=== PATIENT | female | born 1975 ===

== ENCOUNTER 2017-01-21 23:23 | Inpatient (IN) | payer OTHER ==
[2017-01-21] MEDS ORDERED: LIDOCAINE 2% INJ 20 MG/ML (20 ML MDV) ONE (23:48)
[2017-01-22] MEDS ORDERED: IV FLUID CONTINUATION 400 ML IV ONE (00:10)
[2017-01-22] MEDS ORDERED: MIDAZOLAM 2 MG/2 ML VIAL ONE (00:20)
[2017-01-22] MEDS ORDERED: MIDAZOLAM 2 MG/2 ML VIAL IVP ONE (00:23)
[2017-01-22] MEDS ORDERED: LIDOCAINE 2% INJ 20 MG/ML SQ ONE (00:24)
[2017-01-22] MEDS ORDERED: FLUMAZENIL 0.1 MG/ML 5 ML VIAL IVP ONE (00:31)
[2017-01-22] MEDS: FLUMAZENIL 0.1 MG/ML 5 ML VIAL IVP ONE ×2 (00:33→00:36)
[2017-01-22] MEDS ORDERED: FUROSEMIDE 10 MG/ML 4 ML VIAL ONE (00:39)
[2017-01-22] MEDS ORDERED: FUROSEMIDE 10 MG/ML 4 ML VIAL IVP ONE (00:39)
[2017-01-22] MEDS ORDERED: IOHEXOL 350 MG/ML 125ML BOTTLE INJ ONE (00:47)
[2017-01-22] MEDS ORDERED: RX INFO: IV CONTRAST WAS GIVEN 1 EACH MISC MISCELLANE PRN ×2 (00:54→09:56)
--- NOTE | 2017-01-22 01:04 | P.CRDCN ---
History of Present Illness Consult date: 01/22/17 History of present illness: This is a pleasant 41-year-old female patient who was brought by her to the emergency room at [facility] after he found her on the floor at home unresponsive. The patient took her friend's oral morphine and then she became unresponsive. On arrival to the emergency room she was obtunded then she started gaining her consciousness. She was admitted to the intensive care unit. At the intensive care unit, the patient was experiencing chest discomfort as tightness across the chest was some radiation to the left arm. The EKG showed sinus rhythm with nonspecific changes in the anteroseptal leads. She underwent a 3 sets of cardiac enzymes came in to be abnormal and consistent with acute myocardial infarction. In view of the ongoing chest discomfort the patient was transferred emergently to [facility] and she underwent a heart catheterization which showed the occlusion of the very distal LAD where it became small caliber vessel. I decided to pursue a medical treatment only in view of the small nature of the LAD at [facility]. She did not have any other residual disease involving the left circumflex or the right coronary artery. The patient will be started on dual antiplatelet therapy with aspirin and Plavix. Also I would start her on metoprolol. She cannot receive any statin in view of the elevated CPK Medications and Allergies Allergies Allergy/AdvReac Type Severity Reaction Status Date / Time No Known Allergies Allergy Verified 01/22/17 00:41 Physical Exam Vitals: Intake and Output 01/21/17 01/21/17 01/22/17 14:59 22:59 06:59 Intake Total 250 Balance 250 Intake: IV 250 - Constitutional General appearance: no acute distress - Respiratory Respiratory: bilateral: rales - Cardiovascular Rhythm: regular Heart sounds: normal: S1, S2 Results Current Medications Generic Name Dose Route Start Last Admin Trade Name Freq PRN Reason Stop Dose Admin Sodium Chloride 1,000 mls @ 75 mls/hr 01/22/17 01:00 Saline 0.9% IV 01/22/17 06:01 .[id number] OTILIO Miscellaneous Information 1 each 01/22/17 00:54 Rx Info: Iv Contrast Was Given MISCELLANE 01/24/17 00:54 DAILY PRN Per Protocol Intake and Output 01/21/17 01/21/17 01/22/17 14:59 22:59 06:59 Intake Total 250 Balance 250 Intake: IV 250 Assessment and Plan Plan: Assessment Acute coronary syndrome Occluded very distal LAD Plan Dual antiplatelet therapy An echocardiogram was Doppler Anti-ischemic medication Follow-up with the patient
[2017-01-22 01:12] LABS: Glucose,Whole Blood 121 mg/dL (75-99)
[2017-01-22 01:43] VITALS: BMI 31.1
[2017-01-22 05:09] LABS: Basophils % (A) 0 %; CH 33.7; CHCM 31.2; Eosinophils # (A) 0.1 k/uL (0-0.7); Eosinophils % (A) 1 %; HCT 37.4 % (34.0-46.0); HDW 2.52; HGB 11.6 gm/dL (11.4-16.0); Luc # (Auto) 0.38; Luc % (Auto) 4; Lymphocytes # (A) 2.5 k/uL (1.0-4.8); Lymphocytes % (A) 25 %; MCH 33.8 pg (25.0-35.0); MCHC 31.1 g/dL (31.0-37.0); MCV 108.7 fL (80.0-100.0); Macrocytosis Moderate; Mean Platelet Volume 9.3; Monocytes # (A) 0.8 k/uL (0-1.0); Monocytes % (A) 8 %; Neutrophils # (A) 6.2 k/uL (1.3-7.7); Neutrophils % (A) 62 %; RBC 3.44 m/uL (3.80-5.40); RDW 13.2 % (11.5-15.5); WBC 9.9 k/uL (3.8-10.6); WBC (Perox) 10.42
[2017-01-22 05:29] LABS: Anion Gap 9 mmol/L; Blood Urea Nitrogen 10 mg/dL (7-17); Calcium 8.5 mg/dL (8.4-10.2); Carbon Dioxide 23 mmol/L (22-30); Chloride 108 mmol/L (98-107); Glucose 136 mg/dL (74-99); Non-African American GFR(MDRD) >60 (>60 ml/min/1.73 sqM); Potassium 3.6 mmol/L (3.5-5.1); Sodium 140 mmol/L (137-145)
[2017-01-22] MEDS ORDERED: Potassium Replacement Protocol 1 EACH MISC MISCELLANE PRN (06:29)
[2017-01-22] MEDS ORDERED: SODIUM CHLORIDE 0.9% 200 ML IV ONE (06:43)
[2017-01-22] MEDS: SODIUM CHLORIDE 0.9% 1,000 ML IV SCH ×2 (06:55→08:23)
[2017-01-22] MEDS ORDERED: POTASSIUM CHLORIDE ER 20 MEQ TAB.ER PO SCH (07:00)
[2017-01-22 07:49] LABS: INR 1.2 (<1.1)
[2017-01-22 08:00] LABS: ALT 78 U/L (9-52); AST 101 U/L (14-36); Alkaline Phosphatase 220 U/L (38-126); Anion Gap 6 mmol/L; Blood Urea Nitrogen 12 mg/dL (7-17); Calcium 8.5 mg/dL (8.4-10.2); Carbon Dioxide 25 mmol/L (22-30); Chloride 111 mmol/L (98-107); Glucose 84 mg/dL (74-99); Non-African American GFR(MDRD) >60 (>60 ml/min/1.73 sqM); Potassium 3.7 mmol/L (3.5-5.1); Sodium 142 mmol/L (137-145); Total Bilirubin 1.8 mg/dL (0.2-1.3); Total Protein 5.9 g/dL (6.3-8.2)
--- NOTE | 2017-01-22 08:06 | XR ---
EXAMINATION TYPE: XR chest 1V portable DATE OF EXAM: 01/22/2017 6:49 AM COMPARISON: NONE HISTORY: Shortness of breath and cough TECHNIQUE: Single frontal view of the chest is obtained. FINDINGS: There is enlargement of the aorticopulmonary window region. No pneumothorax or pleural eff usion. There are overlying cardiac leads. Question some increase in the interstitium. The heart is en larged. Central vascularity is prominent. IMPRESSION: Possible mediastinal mass, cardiomegaly. Consider chest CT. Correlate to exclude pulmona ry venous hypertension and early interstitial edema.
--- NOTE | 2017-01-22 08:07 | CC ---
DATE OF SERVICE: 01/22/2017 PERFORMING PHYSICIAN: Donovan Antunez MD, ironer sock. PROCEDURE PERFORMED: 1. Selective right and left coronary angiogram. 2. Left heart catheterization. 3. Left ventriculography. INDICATION: This is a pleasant 41-year-old female patient who was admitted to [facility] with chest discomfort and was ruled in for acute coronary event. She was having ongoing chest discomfort and the EKG showed some changes in the anteroseptal leads consistent with ischemia. The cardiac enzymes were checked and came in to be also abnormal. In view of the that, the patient was brought to [facility] for emergent heart catheterization. APPROACH: Right common femoral artery. COMPLICATIONS: None. LEVEL OF SEDATION: Moderate with a sedation length of about a half hour. PROCEDURE DESCRIPTION: After obtaining an informed consent, the patient was brought to the cardiac mechanical laboratory technician. The right common femoral artery was cannulated using micropuncture technique. Micropuncture wire passed easily. Then I placed 6 Tanz[place] sheath in the right common femoral artery. After that, I did selective right and left coronary angiogram using JR4 and JL4 catheters. Left heart catheterization and subsequently LV gram was performed using 6 Tanzanian pigtail catheter. The procedure was completed without any complication. SELECTIVE CORONARY ANGIOGRAM: 1. The right coronary artery is a large-caliber vessel and it is a dominant vessel. It is angiographically normal. It bifurcates into PDA and PLV branches; both are angiographically normal. 2. The left main is angiographically normal. It bifurcates into the left circumflex and left anterior descending artery. 3. The left circumflex is a large-caliber vessel and it is a nondominant vessel. The proximal circumflex is angiographically normal and gives rise into the first obtuse marginal branch, which is a large-caliber vessel, seems to be angiographically normal. The mid circumflex is normal and gives rise into second OM branch, which bifurcates into 2 separate branches and the second OM, seems to be angiographically normal. The left circumflex continues after that as a medium caliber vessel in the AV groove. 4. Left Anterior Descending Artery: The proximal LAD appeared to be angiographically normal. The mid LAD is angiographically normal as well. The LAD here gives rise into a large diagonal branch, which seems like almost dual LAD system. The diagonal branch appeared to have mild disease only. The LAD in the distal portion becomes occluded. The LAD at that territory becomes a small caliber vessel. HEMODYNAMICS: The left ventricular end-diastolic pressure was 16 mmHg and no gradient was identified across the aortic valve. Left ventriculography was performed in the COTO projection and using a power injection. The left ventricular systolic function overall is normal with an ejection fraction of 50% with mid anterior wall hypokinesia which seems to be mild. CONCLUSION: 1. 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 2. Normal left circumflex coronary artery. 3. Normal right coronary artery. 4. Overall normal left ventricular function with mild mid anterior wall hypokinesia. POSTPROCEDURE MANAGEMENT: 1. Dual antiplatelet therapy. 2. Anti-ischemic medications. 3. Hold on statin in view of the elevated CK. 4. Follow up with the patient. 5. Echocardiogram with Doppler.
[2017-01-22] MEDS: FAMOTIDINE 20 MG TAB PO SCH (08:23)
[2017-01-22] MEDS: LACTULOSE 20 GM/30 ML CUP PO SCH (08:25)
[2017-01-22] MEDS: CLOPIDOGREL 75 MG TAB PO SCH (08:27)
[2017-01-22] MEDS: METOPROLOL TARTRATE 12.5 MG TAB PO SCH (08:27)
[2017-01-22] MEDS: ASPIRIN 325 MG TAB PO SCH (08:27)
[2017-01-22 08:29] LABS: Creatine Kinase MB 6.6 ng/mL (0.0-2.4); Troponin I 0.265 ng/mL (0.000-0.034)
[2017-01-22] MEDS ORDERED: FUROSEMIDE 10 MG/ML 4 ML VIAL IV SCH (09:00)
[2017-01-22] MEDS ORDERED: HEPARIN SODIUM,PORCINE 10,000 UNIT/ML 1 ML VIAL IV ONE (09:57)
[2017-01-22] MEDS ORDERED: HEPARIN SODIUM,PORCINE 5,000 UNIT/ML 1 ML VIAL IV PRN (09:57)
[2017-01-22] MEDS ORDERED: HEPARIN SODIUM,PORCINE/D5W PMX 25,000 UNIT in DEXTROSE/WATER 1 500ML.BAG IV SCH (10:00)
--- NOTE | 2017-01-22 10:55 | P.PN ---
Subjective Principal diagnosis: Acute coronary syndrome This is a pleasant 41-year-old female patient who was brought by her to the emergency room at [facility] after he found her on the floor at home unresponsive. The patient took her friend's oral morphine and then she became unresponsive. On arrival to the emergency room she was obtunded then she started gaining her consciousness. She was admitted to the intensive care unit. At the intensive care unit, the patient was experiencing chest discomfort as tightness across the chest was some radiation to the left arm. The EKG showed sinus rhythm with nonspecific changes in the anteroseptal leads. She underwent a 3 sets of cardiac enzymes came in to be abnormal and consistent with acute myocardial infarction. In view of the ongoing chest discomfort the patient was transferred emergently to [facility] and she underwent a heart catheterization which showed the occlusion of the very distal LAD where it became small caliber vessel. I decided to pursue a medical treatment only in view of the small nature of the LAD at [facility]. She did not have any other residual disease involving the left circumflex or the right coronary artery. On follow-up with the patient today, she stated that she continues to have a chest discomfort but it seems to be better. I was unable to feel any pulse in the right femoral artery which was the access to do the heart cath yesterday. The right foot seems to be slightly cooler than the right foot. I am going to get a CTA of the right lower extremity to assess for any occlusion in the right common femoral artery. Meanwhile I will continue the patient on dual antiplatelet therapy as well as beta faith with reducing the dose of metoprolol in view of the marginal blood pressure. I would hold on any statin at this point. We'll follow-up with the echocardiogram and we will we will follow-up with a CTA as well as. Objective - Vital Signs Vital signs: Vital Signs Temp 97.8 F 01/22/17 08:00 Pulse 81 01/22/17 10:00 Resp 31 H 01/22/17 10:00 BP 98/70 01/22/17 10:00 Pulse Ox 96 01/22/17 10:00 Intake & Output 01/21/17 01/22/17 01/22/17 18:59 06:59 18:59 Intake Total 800 250 Output Total 1075 95 Balance -275 155 Weight 72.4 kg Intake: IV 800 250 Sodium Chloride 0.9% 1, 550 250 000 ml @ 75 mls/hr IV . [id number] [facility] Rx#:[id number] Output: Urine 1075 95 Other: Voiding Method Indwelling Catheter Indwelling Catheter - Constitutional General appearance: Present: no acute distress - Respiratory Respiratory: bilateral: rales - Cardiovascular Rhythm: regular Heart sounds: normal: S1, S2 - Labs CBC & Chem 7: 01/22/17 03:53 01/22/17 07:29 Labs: Abnormal Lab Results - Last 24 Hours (Table) 01/22/17 01/22/17 01/22/17 Range/Units 01:11 03:53 03:53 RBC 3.44 L (3.80-5.40) m/uL MCV 108.7 H (80.0-100.0) fL Plt Count 146 L (150-450) k/uL Chloride 108 H (98-107) mmol/L Glucose 136 H (74-99) mg/dL POC Glucose (mg/dL) 121 H (75-99) mg/dL Total Bilirubin (0.2-1.3) mg/dL AST (14-36) U/L ALT (9-52) U/L Alkaline Phosphatase (38-126) U/L Ammonia (<30) umol/L CK-MB (CK-2) (0.0-2.4) ng/mL Troponin I (0.000-0.034) ng/mL Total Protein (6.3-8.2) g/dL Albumin (3.5-5.0) g/dL 01/22/17 01/22/17 01/22/17 Range/Units 05:42 07:29 07:29 RBC (3.80-5.40) m/uL MCV (80.0-100.0) fL Plt Count (150-450) k/uL Chloride 111 H (98-107) mmol/L Glucose (74-99) mg/dL POC Glucose (mg/dL) (75-99) mg/dL Total Bilirubin 1.8 H (0.2-1.3) mg/dL AST 101 H (14-36) U/L ALT 78 H (9-52) U/L Alkaline Phosphatase 220 H (38-126) U/L Ammonia 109 H (<30) umol/L CK-MB (CK-2) 6.6 H* (0.0-2.4) ng/mL Troponin I 0.265 H* (0.000-0.034) ng/mL Total Protein 5.9 L (6.3-8.2) g/dL Albumin 2.7 L (3.5-5.0) g/dL Assessment and Plan Plan: Assessment Acute coronary syndrome Occluded very distal LAD Plan Dual antiplatelet therapy An echocardiogram was Doppler Anti-ischemic medication Follow-up with the patient
--- NOTE | 2017-01-22 11:34 | CT ---
CTA right lower extremity HISTORY: Status post cardiac catheterization, diminished pulses right lower extremity Helical acquisition obtained from the right external iliac artery through the foot. No comparisons. Patient received 125 cc Omni 350 IV, three-dimensional reconstructions performed on an alternate work station The external iliac artery on the right is patent, internal iliac artery is patent. Some free fluid is incidentally noted within the pelvis. Crockett catheter is in place. The right common femoral artery shows focal high-grade stenosis possibly related to closure device. M ore peripherally the superficial femoral and distal common femoral, deep femoral arteries are patent. There is some diminished flow more peripherally. The popliteal artery is patent however the anterior tibial artery is well opacified only to the mid leg level, peroneal artery also not well seen distal ly, posterior tibial artery is patent into the foot. Subcutaneous soft tissue edema changes are prese nt, there are varices present in the medial soft tissues. 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 Case is discussed with Dr. Antunez at the time of performance of the exam. Free fluid is indeterminate within the pelvis.
--- NOTE | 2017-01-22 12:48 | ECHOF ---
Referral Reason:STEMI MEASUREMENTS -------- HEIGHT: 154.9 cm WEIGHT: 72.1 kg BP: 81/60 RVIDd: 4.2 cm (< 3.3) IVSd: 1.2 cm (0.6 - 1.1) LVIDd: 3.2 cm (3.9 - 5.3) LVPWd: 0.9 cm (0.6 - 1.1) IVSs: 1.4 cm LVIDs: 2.0 cm LVPWs: 1.5 cm Ao Diam: 2.8 cm (2.0 - 3.7) AV Cusp: 1.9 cm (1.5 - 2.6) LA Diam: 3.8 cm (2.7 - 3.8) MV EXCURSION: 18.221 mm (> 18.000) MV EF SLOPE: 69 mm/s (70 - 150) EPSS: 0.4 cm MV E Aaron: 0.59 m/s MV DecT: 164 ms MV A Aaron: 0.72 m/s MV E/A Ratio: 0.81 RAP: 5.00 mmHg RVSP: 34.22 mmHg FINDINGS -------- Sinus rhythm. This was a technically good study. There is mild concentric left ventricular hypertrophy. Overall left ventricular systolic function is low-normal with, an EF between 50 - 55 %. Apical septum LV wall motion is hypokinetic. The right ventricle is moderately enlarged. The left atrium is normal in size. The right atrium is normal in size. The aortic valve is trileaflet, and appears structurally normal. No aortic stenosis or regurgitation. The mitral valve leaflets are mildly thickened. Mild mitral annular calcification present. Mild mitral regurgitation is present. Moderate tricuspid regurgitation present. The right ventricular systolic pressure, as measured by Doppler, is 34.22mmHg. Trace/mild (physiologic) pulmonic regurgitation. The aortic root size is normal. The pericardium is normal. CONCLUSIONS -------- 1. Sinus rhythm. 2. Mild mitral regurgitation is present. 3. The right ventricular systolic pressure, as measured by Doppler, is 34.22mmHg. 4. Trace/mild (physiologic) pulmonic regurgitation. 5. The aortic root size is normal. 6. The pericardium is normal. 7. This was a technically good study. 8. There is mild concentric left ventricular hypertrophy. 9. The right ventricle is moderately enlarged. 10. The left atrium is normal in size. 11. The right atrium is normal in size. 12. The aortic valve is trileaflet, and appears structurally normal. No aortic stenosis or regurgitation. 13. The mitral valve leaflets are mildly thickened. 14. Mild mitral annular calcification present. CELLULAR EQUIPMENT INSTALLER: Joanna Bacon RDCS
[2017-01-22 12:56] LABS: Bilirubin, Delta 0.7 mg/dL (0.0-0.2); Total Bilirubin 1.8 mg/dL (0.2-1.3); Total Protein 5.7 g/dL (6.3-8.2)
--- NOTE | 2017-01-22 13:03 | US ---
EXAMINATION TYPE: US abdomen limited DATE OF EXAM: 01/22/2017 12:36 PM COMPARISON: NONE CLINICAL HISTORY: ascites. No ascites visualized Limited abdomen ultrasound performed. IMPRESSION: Limited exam, no ascites is evident
--- NOTE | 2017-01-22 13:46 | P.HPIM ---
History of Present Illness H&P Date: 01/22/17 Chief Complaint: ST elevation AK, chest pain, drug overdose, advanced liver disease, 41-year-old female who apparently moved from [place] recently does not have any primary care physician and down who was [facility] because of unresponsiveness found to have drug overdose by taking a longer acting morphine between 1620 mg at bedtime. According to the with the story told to the emergency department at this was suicidal attempt. Patient was admitted initially to the ICU at [facility] and troponin was mildly elevated shortly after admission developed to have increased chest pain worsening abnormal finding on EKG along with elevated troponin. Dr. Cid decided to transfer patient to [facility] to the [employer] for emergency heart catheter for CRAIG AK. Patient was transferred and end up having an emergency heart catheter finding consistent with distal LAD thrombus. The artery was very small could not do an angioplasty and stent placement. Patient was admitted to the ICU afterward. Review of Systems Constitutional: Reports fatigue, Reports lethargy, Reports weakness, Denies as per HPI, Denies anorexia, Denies chills, Denies chronic headaches, Denies chronic pain, Denies daytime sleepiness, Denies fever, Denies malaise, Denies night sweats, Denies poor appetite, Denies sweats, Denies weight gain, Denies weight loss Ears: bilateral: decreased hearing Ears, nose, mouth and throat: Reports nasal congestion, Reports sinus pain, Reports sinus pressure, Denies as per HPI, Denies ant. neck pain, Denies bleeding gums, Denies dental pain, Denies dysphagia, Denies epistaxis, Denies headache, Denies hoarseness, Denies mouth pain, Denies nasal discharge, Denies neck fullness/pressure, Denies neck lump, Denies nose pain, Denies odynophagia, Denies post-nasal drip, Denies swelling in mouth, Denies swelling in throat, Denies sore throat, Denies vertigo, Denies voice changes Cardiovascular: Reports chest pain, Reports decreased exercise tolerance, Reports edema, Reports leg edema, Reports lightheadedness, Reports palpitations , Denies as per HPI, Denies claudication, Denies dyspnea on exertion, Denies high blood pressure, Denies irregular heart beat, Denies orthopnea, Denies paroxysmal nocturnal dyspnea, Denies phlebitis, Denies rapid heart beat, Denies shortness of breath, Denies syncope Respiratory: Reports congestion, Reports cough, Reports dyspnea, Denies as per HPI, Denies cough with sputum, Denies excessive sputum, Denies hemoptysis, Denies home oxygen, Denies pain, Denies pain on inspiration, Denies pleurisy, Denies respiratory infections, Denies sleep apnea, Denies snoring, Denies wheezing Gastrointestinal: Reports abdominal pain, Reports belching, Reports bloating, Reports constipation, Reports dyspepsia, Reports early satiety, Reports excessive gas, Reports nausea, Denies as per HPI, Denies BRBPR, Denies change in bowel habits, Denies coffee ground emesis, Denies diarrhea, Denies heartburn , Denies hematemesis, Denies hematochezia, Denies indigestion, Denies jaundice, Denies lactose intolerance, Denies loss of appetite, Denies melena, Denies vomiting Genitourinary: Denies as per HPI, Denies abnormal vaginal bleeding, Denies decreased libido, Denies difficulty conceiving, Denies difficulty voiding, Denies dysmenorrhea, Denies dyspareunia, Denies dysuria, Denies flank pain, Denies genital sores, Denies hematuria, Denies hot flashes, Denies incomplete emptying, Denies kidney stones, Denies menorrhagia, Denies mixed incontinence, Denies nocturia, Denies pelvic pain, Denies post void dribbling, Denies , Denies prolapse symptoms, Denies stress incontinence, Denies urge incontinence , Denies urgency, Denies urinary frequency, Denies vaginal discharge, Denies vaginal dryness, Denies vaginal itching, Denies vaginal odor Musculoskeletal: Reports arm numbness/tingling, Reports neck pain, Denies as per HPI, Denies atrophy, Denies fractures, Denies frequent falls, Denies gait dysfunction, Denies hot joints, Denies leg numbness/tingling, Denies limitation of motion, Denies loss of height, Denies low back pain, Denies morning stiffness , Denies muscle cramps, Denies muscle weakness, Denies myalgias, Denies neck stiffness, Denies prior amputations, Denies redness of joints, Denies shooting arm pain, Denies shooting leg pain Integumentary: Reports rash, Denies as per HPI, Denies acne, Denies boils, Denies brittle nails, Denies change in hair/nails, Denies color changes, Denies darkening of skin, Denies depigmentation, Denies dryness, Denies foot/leg ulcers , Denies growths, Denies hirsutism, Denies lesions, Denies onychomycosis, Denies pruritus, Denies sores, Denies striae, Denies unusual bruising, Denies wounds Neurological: Reports change in mentation, Denies as per HPI, Denies aphasia, Denies ataxia, Denies balance difficulties, Denies burning pain, Denies change in smell/taste, Denies change in speech, Denies confusion, Denies convulsions, Denies double vision, Denies gait dysfunction, Denies head injury, Denies headaches, Denies hearing difficulties, Denies lack of coordination, Denies loss of vision, Denies memory loss, Denies migraines, Denies motor disturbance, Denies numbness, Denies paralysis, Denies paresthesias, Denies seizures, Denies sensory deficit, Denies spasticity, Denies syncope, Denies tic, Denies tingling , Denies transient paralysis, Denies tremors, Denies vertigo, Denies weakness, Denies visual changes Psychiatric: Reports anhedonia, Reports anxiety, Reports anxiety attacks, Reports depression, Reports memory loss, Reports mood swings, Reports paranoia, Reports sadness/tearfulness, Denies as per HPI, Denies change in appetite, Denies change in libido, Denies change in sleep habits, Denies confusion, Denies difficulty concentrating, Denies disorientation, Denies hallucinations, Denies hopelessness, Denies hypersomnia, Denies insomnia, Denies irritability, Denies sleep disturbances, Denies suicidal ideation Endocrine: Reports cold intolerance, Reports palpitations, Reports polydipsia, Reports polyphagia, Denies as per HPI, Denies deepening of the voice, Denies excessive sweating, Denies excessive thirst, Denies fatigue, Denies flushing, Denies heat intolerance, Denies high blood sugars, Denies increase in ring/shoe/ hat size, Denies low blood sugars, Denies nocturia, Denies polyuria, Denies proptosis, Denies recent glucocorticoid use, Denies thyroid mass, Denies weight change Hematologic/Lymphatic: Denies as per HPI, Denies easy bleeding, Denies easy bruising, Denies lymphadenopathy, Denies lymphedema, Denies thrombophilia Allergic/Immunologic: Denies as per HPI, Denies allergic rhinitis, Denies anaphylaxis, Denies angioedema, Denies gluten intolerance, Denies persistent infections, Denies seasonal allergies, Denies urticaria, Denies wheezing Past Medical History Past Medical History: Deep Vein Thrombosis (DVT), Hypertension, Liver Disease Additional Past Medical History / Comment(s): Portal HTN, Portal vein is closed off, Esophageal varices from portal HTN, pancreatitis, peritnitis History of Any Multi-Drug Resistant Organisms: None Reported Past Surgical History: Adenoidectomy, Appendectomy, Cholecystectomy, Tonsillectomy Additional Past Surgical History / Comment(s): Spleenectomy 9 years old cholecystectomy when 15 years old. Vein removed from left leg due to DVT 17 years ago Past Anesthesia/Blood Transfusion Reactions: No Reported Reaction Smoking Status: Never smoker Past Drug Use History: Heroin, IV Drug Use, Methamphetamine Additional Drug Use History / Comment(s): early 30s - Past Family History Father Family Medical History: Liver Disease Additional Family Medical History / Comment(s): Drug Use Mother Family Medical History: Thyroid Disorder Additional Family Medical History / Comment(s): Lupus, hypothyroid Medications and Allergies Home Medications Medication Instructions Recorded Confirmed Type Btuvwbi-Naiy-Tkiv [id number] 1 tab PO BID PRN 01/22/17 01/22/17 History [Excedrin] diphenhydrAMINE HCL [Benadryl] 25 mg PO HS PRN 01/22/17 01/22/17 History Allergies Allergy/AdvReac Type Severity Reaction Status Date / Time flumazenil Allergy Rash/Hives Verified 01/22/17 08:24 latex Allergy Rash/Hives Verified 01/22/17 08:24 Physical Exam Vitals: Vital Signs Temp Pulse Pulse Pulse Resp BP BP 01/22/17 12:00 98.1 F 81 84 14 110/78 01/22/17 11:45 01/22/17 11:00 81 14 102/72 01/22/17 10:00 81 31 H 98/70 01/22/17 09:00 83 19 103/75 01/22/17 08:00 97.8 F 75 84 18 85/66 01/22/17 07:10 80 12 81/60 050817 07:00 73 13 81/60 050817 06:50 73 12 82/63 050817 06:40 74 10 L 82/63 05 06:30 82 27 H 82/63 0508 06:20 80 14 84/63 0508 06:10 65 11 L 78/58 05 06:00 76 12 78/58 05 05:50 74 13 88/57 05 05:40 74 11 L 88/57 05 05:30 79 12 88/57 05 05:20 78 11 L 76/57 05 05:10 77 12 76/57 05 05:00 79 12 79/58 05 04:50 81 15 78/61 05 04:40 80 13 78/61 05 04:39 97.8 F 84 12 78/61 0508 04:30 80 13 78/61 0508 04:20 78 12 82/64 0508 04:10 76 12 82/64 0508 04:00 97.8 F 75 76 12 82/64 050817 03:50 78 13 83/53 0508 03:40 77 14 79/53 050817 03:39 97.8 F 76 12 82/64 050817 03:30 76 13 75/53 050817 03:20 82 11 L 83/62 0508 03:10 77 13 83/62 0508 03:00 84 18 83/62 050817 02:50 80 12 91/69 050817 02:40 90 23 91/69 05/0817 02:39 97.8 F 86 16 91/69 05/0817 02:30 91 20 91/69 0508/17 02:20 82 13 83/66 050817 02:10 83 20 83/66 0508/17 02:09 98.1 F 85 24 83/66 05/0817 02:00 89 20 100/73 0508 01:50 90 22 94/73 01/22/17 01:40 83 15 94/73 01/22/17 01:39 98.4 F 83 24 100/73 01/22/17 01:30 84 16 99/75 01/22/17 01:24 97.8 F 82 20 94/73 01/22/17 01:20 93 22 99/78 01/22/17 01:15 86 16 01/22/17 01:09 98.4 F 87 15 99/75 01/22/17 00:54 97.7 F 91 12 99/73 01/22/17 00:20 97.7 F 82 10 L 94/73 Pulse Ox 01/22/17 12:00 97 01/22/17 11:45 96 01/22/17 11:00 96 01/22/17 10:00 96 01/22/17 09:00 97 01/22/17 08:00 95 01/22/17 07:10 96 01/22/17 07:00 96 01/22/17 06:50 95 01/22/17 06:40 94 L 01/22/17 06:30 95 01/22/17 06:20 96 01/22/17 06:10 95 01/22/17 06:00 95 01/22/17 05:50 96 01/22/17 05:40 96 01/22/17 05:30 96 01/22/17 05:20 96 01/22/17 05:10 95 01/22/17 05:00 96 01/22/17 04:50 96 01/22/17 04:40 95 01/22/17 04:39 96 01/22/17 04:30 95 01/22/17 04:20 95 01/22/17 04:10 95 01/22/17 04:00 93 L 01/22/17 03:50 95 01/22/17 03:40 94 L 01/22/17 03:39 93 L 01/22/17 03:30 95 01/22/17 03:20 94 L 01/22/17 03:10 93 L 01/22/17 03:00 92 L 01/22/17 02:50 93 L 01/22/17 02:40 94 L 01/22/17 02:39 94 L 01/22/17 02:30 93 L 01/22/17 02:20 91 L 01/22/17 02:10 92 L 01/22/17 02:09 93 L 01/22/17 02:00 94 L 01/22/17 01:50 99 01/22/17 01:40 99 01/22/17 01:39 92 L 01/22/17 01:30 100 01/22/17 01:24 100 01/22/17 01:20 100 01/22/17 01:15 01/22/17 01:09 100 01/22/17 00:54 100 01/22/17 00:20 100 Intake and Output 01/21/17 01/22/17 01/22/17 22:59 06:59 14:59 Intake Total 800 400 Output Total 1075 200 Balance -275 200 Intake: IV 800 400 Sodium Chloride 0.9% 1, 550 400 000 ml @ 75 mls/hr IV . [id number] Rx#:[id number] Output: Urine 1075 200 Other: Voiding Method Indwelling Catheter Indwelling Catheter Weight 72.4 kg - Constitutional General appearance: no average body habitus, cooperative, no disheveled, no mild distress, no morbidly obese, no acute distress, no obese, no severe distress, no thin - EENT Eyes: abnormal pupil, no anicteric sclerae, no disc margins sharp, no edentulous , no EOMI, no PERRLA, no fundus normal, no photophobia, no dentition normal, no poor dentition, no ptosis, no scleral icterus, normal appearance ENT: no hard of hearing, no hearing grossly normal, no NA/AT, normal oropharynx , no other, no pharyngeal erythema, no thrush, no tonsillar exudates, no tonsillar swelling Ears: bilateral: normal - Neck Neck: no lymphadenopathy, normal ROM, no other, no rigidity, no stridor, no thyromegaly Carotids: bilateral: upstroke normal Thyroid: bilateral: normal size - Respiratory Respiratory: bilateral: CTA, diminished - Cardiovascular Rhythm: regular Heart sounds: normal: S1, S2 Abnormal Heart Sounds: systolic murmur - Gastrointestinal General gastrointestinal: no absent bowel sounds, no decreased bowel sounds, distended, no hepatomegaly, no hyperactive bowel sounds, no normal bowel sounds , no organomegaly, no rigid, no scaphoid, soft, no splenomegaly, no tenderness, no umbilical hernia, no ventral hernia - Integumentary Integumentary: no calor, no cellulitis, no cyanotic, no decreased turgor, no flushed, no jaundiced, no normal, no normal turgor, pale, rash, no ulcer - Neurologic Neurologic: CNII-XII intact - Musculoskeletal Musculoskeletal: gait normal, generalized weakness, strength equal bilaterally, no right sided weakness, no left sided weakness - Psychiatric Psychiatric: A&O x's 3, appropriate affect Results CBC & Chem 7: 01/22/17 03:53 01/22/17 07:29 Labs: Abnormal Lab Results - Last 24 Hours (Table) 01/22/17 01/22/17 01/22/17 Range/Units 01:11 03:53 03:53 RBC 3.44 L (3.80-5.40) m/uL MCV 108.7 H (80.0-100.0) fL Plt Count 146 L (150-450) k/uL Chloride 108 H (98-107) mmol/L Glucose 136 H (74-99) mg/dL POC Glucose (mg/dL) 121 H (75-99) mg/dL Total Bilirubin (0.2-1.3) mg/dL Delta Bilirubin (0.0-0.2) mg/dL AST (14-36) U/L ALT (9-52) U/L Alkaline Phosphatase (38-126) U/L Ammonia (<30) umol/L CK-MB (CK-2) (0.0-2.4) ng/mL Troponin I (0.000-0.034) ng/mL Total Protein (6.3-8.2) g/dL Albumin (3.5-5.0) g/dL 01/22/17 01/22/17 01/22/17 Range/Units 05:42 07:29 07:29 RBC (3.80-5.40) m/uL MCV (80.0-100.0) fL Plt Count (150-450) k/uL Chloride 111 H (98-107) mmol/L Glucose (74-99) mg/dL POC Glucose (mg/dL) (75-99) mg/dL Total Bilirubin 1.8 H (0.2-1.3) mg/dL Delta Bilirubin (0.0-0.2) mg/dL AST 101 H (14-36) U/L ALT 78 H (9-52) U/L Alkaline Phosphatase 220 H (38-126) U/L Ammonia 109 H (<30) umol/L CK-MB (CK-2) 6.6 H* (0.0-2.4) ng/mL Troponin I 0.265 H* (0.000-0.034) ng/mL Total Protein 5.9 L (6.3-8.2) g/dL Albumin 2.7 L (3.5-5.0) g/dL 01/22/17 Range/Units 07:29 RBC (3.80-5.40) m/uL MCV (80.0-100.0) fL Plt Count (150-450) k/uL Chloride (98-107) mmol/L Glucose (74-99) mg/dL POC Glucose (mg/dL) (75-99) mg/dL Total Bilirubin 1.8 H (0.2-1.3) mg/dL Delta Bilirubin 0.7 H (0.0-0.2) mg/dL AST 137 H (14-36) U/L ALT 78 H (9-52) U/L Alkaline Phosphatase 228 H (38-126) U/L Ammonia (<30) umol/L CK-MB (CK-2) (0.0-2.4) ng/mL Troponin I (0.000-0.034) ng/mL Total Protein 5.7 L (6.3-8.2) g/dL Albumin 2.7 L (3.5-5.0) g/dL Thrombosis Risk Factor Assmnt - DVT/VTE Prophylaxis DVT/VTE Prophylaxis: Mechanical Prophylaxis ordered - Choose All That Apply Each Factor Represents 1 point: Acute AK, Medical pt on bed rest, Swollen legs ( current) Each Risk Factor Represents 3 Points: History of DVT/PE Thrombosis Risk Factor Assessment Total Risk Factor Score: 6 Thrombosis Risk Factor Assessment Level: High Risk Assessment and Plan Plan: 1 ST elevation AK: Patient had an angiogram with finding consistent with distal LAD blockage no angioplasty was done. Patient will be continue on secondary prevention at this point CK with troponin will be repeated can patient will be going for an echocardiogram. 2 CAD: With new onset of AK from yesterday awaiting for echo patient would have secondary prevention with the current symptom will be started on beta faith, Elliott, statin and possible isosorbide. 3 drug overdose: Was mostly long acting morphine was reversed with Narcan patient claimed this was incidental more than suicidal attempt. With the current symptoms patient be seen psychiatry and need to be cleared by psych before leaving the hospital. 4 advanced liver disease: Either primary biliary cirrhosis or congenital CMV, liver function tests will be repeated daily patient was started on lactulose further management and possible follow-up with hepatology need to be done. 5 portal hypertension: Patient had this is secondary to advanced liver disease. 6 previous history of GI bleed: Patient will continue on Pepcid and either nadolol for esophageal varices or other beta faith. 7 possible drug addiction: Patient uses heroin in the past and on methamphetamine, patient be seen psych. 8 DVT prophylaxis: Patient will be on heparin subcutaneous. 9 GI prophylaxis: Continue patient on Pepcid daily. CODE STATUS: Full code. Expectation from this admission: Patient to the hospital for more than 2 nights.
[2017-01-22] MEDS ORDERED: VANCOMYCIN 1,000 MG in SODIUM CHLORIDE 0.9% 250 ML IVPB STA (15:11)
[2017-01-22 15:42] LABS: Hepatitis B Surface Ag Index 0.06
[2017-01-22 15:48] LABS: Hepatitis B Core IgM Index 0.08
--- NOTE | 2017-01-22 15:57 | P.GSCN ---
History of Present Illness Consult date: 01/22/17 Reason for Consult: acute right leg ischemia History of present illness: impression; 1. acute right leg ischemia with right common femoral occlusion 2. s/p NSTEMI 3. portal hypertension, CMV infection plan; 1. right common femoral thromboembolectomy and related procedures 41 y/o woman, found to have diminished pulses in right leg after heart catheterization performed 01/21/2017 for NSTEMI. Underwent CTA that demonstrated focal area of thrombosis in the right common femoral artery. History of portal vein thrombosis, portal hypertension in past. Denies hypercoagulable state. Not on full anticoagulation. Denies nicotine dependence, previous ND, CVA, DM. History of metamphetatmine use and heroin use in the past; recent narcotic overdose. PMHx, PSHx, Habits, Allergies; reviewed PE: HEENT: no bruits, no JVD LUngs; clear bilaterally Heart; RRR, normal S1 and S2 ABD; soft, non-tender, no palpable pulsatile organomegaly or bruits, well healed transverse incision left upper quadrant EXTR; right femoral, popliteal and anterior tibial signals are doppler, posterior tibial is not doppler; foot is viable with capillary refill of 3-4 seconds, full range of motion, sensation and proprioceiption is intact; left femoral, popliteal, dorsalis pedis and posterior tibial pulses are palpable; left foot is viable with capillary refill of 2-3 seconds Risks and benefits of right femoral thromboendarterectomy discussed including cardiac and pulmonary complications, infection, bleeding, nerve dysfunction, restenosis and need for surveillance, compartment syndrome, need for fasciotomy. Patient understands risks and benefits of procedure and is willing to have it performed. Scheduled urgently this pm; patient had full breakfast at 0800. Past Medical History Past Medical History: Deep Vein Thrombosis (DVT), Hypertension, Liver Disease Additional Past Medical History / Comment(s): Portal HTN, Portal vein is closed off, Esophageal varices from portal HTN, pancreatitis, peritnitis History of Any Multi-Drug Resistant Organisms: None Reported Past Surgical History: Adenoidectomy, Appendectomy, Cholecystectomy, Tonsillectomy Additional Past Surgical History / Comment(s): Spleenectomy 9 years old cholecystectomy when 15 years old. Vein removed from left leg due to DVT 17 years ago Past Anesthesia/Blood Transfusion Reactions: No Reported Reaction Smoking Status: Never smoker Past Drug Use History: Heroin, IV Drug Use, Methamphetamine Additional Drug Use History / Comment(s): early 30s - Past Family History Father Family Medical History: Liver Disease Additional Family Medical History / Comment(s): Drug Use Mother Family Medical History: Thyroid Disorder Additional Family Medical History / Comment(s): Lupus, hypothyroid Medications and Allergies Home Medications Medication Instructions Recorded Confirmed Type Lwaopsn-Xciy-Cdsb [id number] 1 tab PO BID PRN 01/22/17 01/22/17 History [Excedrin] diphenhydrAMINE HCL [Benadryl] 25 mg PO HS PRN 01/22/17 01/22/17 History Allergies Allergy/AdvReac Type Severity Reaction Status Date / Time flumazenil Allergy Rash/Hives Verified 01/22/17 08:24 latex Allergy Rash/Hives Verified 01/22/17 08:24 Surgical - Exam Vital Signs Temp Pulse Resp BP Pulse Ox 97.7 F 82 10 L 94/73 100 01/22/17 00:20 01/22/17 00:20 01/22/17 00:20 01/22/17 00:20 01/22/17 00:20 Results - Labs 01/22/17 03:53 01/22/17 07:29 Abnormal Lab Results - Last 24 Hours (Table) 01/22/17 01/22/17 01/22/17 Range/Units 01:11 03:53 03:53 RBC 3.44 L (3.80-5.40) m/uL MCV 108.7 H (80.0-100.0) fL Plt Count 146 L (150-450) k/uL Chloride 108 H (98-107) mmol/L Glucose 136 H (74-99) mg/dL POC Glucose (mg/dL) 121 H (75-99) mg/dL Total Bilirubin (0.2-1.3) mg/dL Delta Bilirubin (0.0-0.2) mg/dL AST (14-36) U/L ALT (9-52) U/L Alkaline Phosphatase (38-126) U/L Ammonia (<30) umol/L CK-MB (CK-2) (0.0-2.4) ng/mL Troponin I (0.000-0.034) ng/mL Total Protein (6.3-8.2) g/dL Albumin (3.5-5.0) g/dL 01/22/17 01/22/17 01/22/17 Range/Units 05:42 07:29 07:29 RBC (3.80-5.40) m/uL MCV (80.0-100.0) fL Plt Count (150-450) k/uL Chloride 111 H (98-107) mmol/L Glucose (74-99) mg/dL POC Glucose (mg/dL) (75-99) mg/dL Total Bilirubin 1.8 H (0.2-1.3) mg/dL Delta Bilirubin (0.0-0.2) mg/dL AST 101 H (14-36) U/L ALT 78 H (9-52) U/L Alkaline Phosphatase 220 H (38-126) U/L Ammonia 109 H (<30) umol/L CK-MB (CK-2) 6.6 H* (0.0-2.4) ng/mL Troponin I 0.265 H* (0.000-0.034) ng/mL Total Protein 5.9 L (6.3-8.2) g/dL Albumin 2.7 L (3.5-5.0) g/dL 01/22/17 Range/Units 07:29 RBC (3.80-5.40) m/uL MCV (80.0-100.0) fL Plt Count (150-450) k/uL Chloride (98-107) mmol/L Glucose (74-99) mg/dL POC Glucose (mg/dL) (75-99) mg/dL Total Bilirubin 1.8 H (0.2-1.3) mg/dL Delta Bilirubin 0.7 H (0.0-0.2) mg/dL AST 137 H (14-36) U/L ALT 78 H (9-52) U/L Alkaline Phosphatase 228 H (38-126) U/L Ammonia (<30) umol/L CK-MB (CK-2) (0.0-2.4) ng/mL Troponin I (0.000-0.034) ng/mL Total Protein 5.7 L (6.3-8.2) g/dL Albumin 2.7 L (3.5-5.0) g/dL Diabetes panel 01/22/17 01/22/17 01/22/17 Range/Units 03:53 07:29 07:29 Sodium 140 142 (137-145) mmol/L Potassium 3.6 3.7 (3.5-5.1) mmol/L Chloride 108 H 111 H (98-107) mmol/L Carbon Dioxide 23 25 (22-30) mmol/L BUN 10 12 (7-17) mg/dL Creatinine 0.60 0.64 (0.52-1.04) mg/dL Glucose 136 H 84 (74-99) mg/dL Calcium 8.5 8.5 (8.4-10.2) mg/dL AST 101 H 137 H (14-36) U/L ALT 78 H 78 H (9-52) U/L Alkaline Phosphatase 220 H 228 H (38-126) U/L Total Protein 5.9 L 5.7 L (6.3-8.2) g/dL Albumin 2.7 L 2.7 L (3.5-5.0) g/dL Calcium panel 01/22/17 01/22/17 01/22/17 Range/Units 03:53 07:29 07:29 Calcium 8.5 8.5 (8.4-10.2) mg/dL Albumin 2.7 L 2.7 L (3.5-5.0) g/dL Pituitary panel 01/22/17 01/22/17 Range/Units 03:53 07:29 Sodium 140 142 (137-145) mmol/L Potassium 3.6 3.7 (3.5-5.1) mmol/L Chloride 108 H 111 H (98-107) mmol/L Carbon Dioxide 23 25 (22-30) mmol/L BUN 10 12 (7-17) mg/dL Creatinine 0.60 0.64 (0.52-1.04) mg/dL Glucose 136 H 84 (74-99) mg/dL Calcium 8.5 8.5 (8.4-10.2) mg/dL Adrenal panel 01/22/17 01/22/17 01/22/17 Range/Units 03:53 07:29 07:29 Sodium 140 142 (137-145) mmol/L Potassium 3.6 3.7 (3.5-5.1) mmol/L Chloride 108 H 111 H (98-107) mmol/L Carbon Dioxide 23 25 (22-30) mmol/L BUN 10 12 (7-17) mg/dL Creatinine 0.60 0.64 (0.52-1.04) mg/dL Glucose 136 H 84 (74-99) mg/dL Calcium 8.5 8.5 (8.4-10.2) mg/dL Total Bilirubin 1.8 H 1.8 H (0.2-1.3) mg/dL AST 101 H 137 H (14-36) U/L ALT 78 H 78 H (9-52) U/L Alkaline Phosphatase 220 H 228 H (38-126) U/L Total Protein 5.9 L 5.7 L (6.3-8.2) g/dL Albumin 2.7 L 2.7 L (3.5-5.0) g/dL
[2017-01-22 16:01] LABS: Hepatitis C Virus IgG Ab Reactive (Negative)
--- NOTE | 2017-01-22 16:11 | CONS ---
DATE OF CONSULTATION: This is a 41-year-old female who was transferred from the ER and ICU at [facility] to the Pack Puller here. She apparently had a catheterization, which showed a small distal LAD lesion. She is to be treated medically. She apparently overdosed on morphine sulfate type medication. She was found unresponsive. There was apparently vomit on her face and chest area. She was taken to the ER at [facility]. She was given Narcan and then transferred to the ICU there. Because of chest pain, some EKG changes and some Troponin elevation, she went to the [facility] Pull[facility] here. Subsequent to that, she developed a bright foot and right lower extremity that was pulseless. She had right lower extremity pain and she had a CTA of the lower extremities that showed evidence of a femoral artery occlusion. 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 The patient apparently has chronic liver failure with cirrhosis. Has had a liver biopsy. He has had pancreatitis and peritonitis as well as ascites. Has also apparently had an upper and lower gastrointestinal bleed maybe from the varices. She apparently was supposed to be on lactulose, but currently was not on Lactulose at home. Only using aspirin and Anacin or some other pain reliever at home for her, migraines. She states she took some morphine. Her 's morphine because of headaches. Her past medical history is as above. ALLERGIES: To FLUMAZENIL and LATEX. Surgical history includes splenectomy, appendectomy, tonsillectomy and adenoidectomy, cholecystectomy. Social history is positive for previous drug use and methamphetamines and heroin. Also apparently was using her 's morphine containing pain medication. Occupational history is noncontributory. She has no doctor in this area. Recently moved up from [place]. REVIEW OF SYSTEMS: CONSTITUTIONAL: Negative. NEUROLOGICAL: Negative. HEENT: Negative. CARDIOVASCULAR: Negative. PULMONARY: Negative. GI/: Negative. Rheumatological/immunologic: Negative. ENDOCRINOLOGIC: Negative. Dermatologic: Vascular painful right lower extremity. Current vital signs are reviewed. Temperature 97.8, heart rate 81, respirations 14, blood pressure 102/72, mean 82, 6 liters saturation 96%. Appears in no acute distress. HEENT examination is grossly unremarkable. Mucous membranes are moist. No oral lesions. Neck is supple. Full range of motion. No adenopathy or thyromegaly. Neck veins are flat. Cardiovascular examination reveals regular rhythm and rate. Heart rate 81. S1, S2 normal. No murmur. Lungs are relatively clear, breath sounds equal. ABDOMEN: Obese. There may be some ascites. There is some diffuse abdominal tenderness. Nothing surgical. Extremities reveal pulseless right lower extremity. SKIN: Without rash. NEUROLOGICAL: Nonfocal. Lab data is reviewed. White count 9.9, hemoglobin 11.6, hematocrit 37.4, platelet count 146,000. PT, INR was 12 and 1.2. Sodium and potassium normal. Chloride is 111, CO2 of 25, BUN and creatinine were 12 and 0.64, total bilirubin was 1.8. AST 108, ALT 78, Alk phos 220. CK-MB was 6.6. Troponin is. 2.65. N-terminal ProBNP 5100, albumin 2.7. A chest x-ray shows possible mediastinal mass and cardiomegaly. The lower extremity CTA shows segmental high grade stenosis of common femoral artery without flow to the right leg as described in the body. Medications are reviewed. Currently on aspirin, Clopidogrel Pepcid p.o. and IV 0.9 at 100. Heparin drip via weight -based protocol, O2 at 6 liters high flow, lactulose 15 grams p.o. daily, metoprolol, potassium and sodium. I have asked to start some Rocephin IV because of the esophageal varices. Also,( ) and probably should be started as well. Will do an ultrasound of the belly. Additional labs and so forth will be checked. ASSESSMENT: 1. Femoral artery occlusion, with anticipated embolectomy. 2. Morphine sulfate overdose, Narcan drip with improvement. 3. Status post catheterization, with a small distal LAD lesion, to be medically managed with beta blockers and dual antiplatelet therapy. 4. History of previous drug abuse with heroin and methamphetamine. 5. History of esophageal varices. 6. Chronic cirrhosis. 7. Portal hypertension. 8. Right deep venous thrombosis. 9. Previous splenectomy. 10. Previous history of CMV infection as 10-year-old. PLAN: I really don't understand that, true etiology of the patient's liver failure. I will check a hepatitis serology. She denies alcohol abuse. Get an ultrasound of the belly. Additional recommendations and suggestions are forthcoming. Prognosis is guarded. Vascular surgery is on their way.
--- NOTE | 2017-01-22 18:12 | P.CN ---
Psychiatric Consult - . Consult date: 01/22/17 Consult:: DATE OF SERVICE: 01/22/2017 IDENTIFYING DATA: This patient is a 41-year-old female who was admitted to ICU after she was found unresponsive due to a drug overdose, took longer acting morphine. HISTORY OF PRESENT ILLNESS: The patient presents with the patient was seen in the medical ICU, reports that it was not a suicide attempt even though it has been documented in the medical chart as a suicide attempt, no family was present to cooperate the history. Patient reports that for the past 2 weeks she 's been having migraines. Has been taking Excedrin migraine tablets without relief, and when a friend of hers offered her a stronger medication she took it. She then developed chest pain leading to a cath for an MO. She now is waiting for surgery due to an embolus. Patient states that she was not suicidal and is not suicidal, denies depression , denies hopelessness, worthlessness or helplessness. Nursing staff gave an excellent history patient's past history.. PAST PSYCHIATRIC HISTORY: Patient states that she saw a psychologist she thinks as a child with her mother, but never sought when as an adult. Does not take any psychiatric medications. Has a past of history of heroin, methamphetamine IV in early 30s. PAST MEDICAL HISTORY: Deep Vein Thrombosis (DVT), Hypertension, Liver Disease; Portal HTN, Portal vein is closed off, Esophageal varices from portal HTN, pancreatitis, peritnitis Past Surgical History: Adenoidectomy, Appendectomy, Cholecystectomy, Tonsillectomy Additional Past Surgical History / Comment(s): Spleenectomy 9 years old cholecystectomy when 15 years old. Vein removed from left leg due to DVT 17 years ago ALLERGIES: per record, flumazenil,latex]. CHEMICAL DEPENDENCY HISTORY: In early 30s used heroin/amphetamines IV. MENTAL STATUS EXAM: Patient alert and oriented 3, good eye contact, fair groomed in hospital attire. Speech normal volume, rate and production. Coherent, logical and goal directed thought process. No AMAURY, no FOI. No TB/TW/ TI Denied auditory and visual hallucinations. Denied paranoid ideation, delusions or IOR. Memory grossly intact Cognitionaverage Mood neutral, affect full range decreased intensity, congruent with mood. Denies suicidal ideation, denies homicidal ideation. Insight partial; Judgment grossly intact ]. IMPRESSIONS: 41 year old female with past history of opioid/stimulant abuse, but has not used in years. Gives a convincing account of recent onset of migraines on right side that she has been unable to have evaluated due to no insurance. She has been taking OTC med w/o relief. Took friends opiate and became unresponsive. She denies depression, anxiety, thoughts of self harm. No evidence of psychosis. No suggestion of lydia or hypomania. Pt is not psychotic. She is future oriented, i.e. agrees to have surgery. she is not an imminent threat to self. PLAN: Will follow up tomorrow.
[2017-01-22] MEDS ORDERED: SUCCINYLCHOLINE CHLORIDE 100 MG/5 ML SYR IV ONE (18:37)
[2017-01-22] MEDS ORDERED: LIDOCAINE 1% INJ 10MG/ML (20 ML MDV) ONE (18:37)
[2017-01-22] MEDS ORDERED: HYDROmorphone (PF) 1 MG/ML ONE (18:37)
[2017-01-22] MEDS ORDERED: PROPOFOL 10 MG/ML 20 ML VIAL IV ONE (18:37)
[2017-01-22] MEDS ORDERED: PROTAMINE SULFATE 10 MG/ML 5 ML VIAL IV ONE (18:37)
[2017-01-22] MEDS ORDERED: HEPARIN SODIUM,PORCINE 5,000 UNIT/ML 1 ML VIAL ONE (18:37)
[2017-01-22] MEDS ORDERED: fentaNYL (PF) 50 MCG/ML 2 ML AMP ONE (18:37)
[2017-01-22] MEDS ORDERED: ROCURONIUM BROMIDE 10 MG/ML 10 ML VIAL IV ONE (18:37)
[2017-01-22] MEDS ORDERED: ePHEDrine 50 MG/ML 1 ML AMP ONE (18:37)
[2017-01-22] MEDS ORDERED: PHENYLEPHRINE-0.9% NACL SYG 1 MG/10 ML SYRINGE ONE (18:37)
[2017-01-22] MEDS ORDERED: GLYCOPYRROLATE 0.2 MG/ML 2 ML VIAL ONE (18:37)
[2017-01-22] MEDS ORDERED: HEPARIN SODIUM 1,000 UNIT/ML VIAL ONE (18:37)
[2017-01-22] MEDS ORDERED: NEOSTIGMINE 1 MG/ML 10 ML VIAL ONE (18:37)
[2017-01-22] MEDS ORDERED: ONDANSETRON 4 MG/2 ML VIAL ONE (18:37)
[2017-01-22] MEDS ORDERED: LACTATED RINGERS 1,000 ML IV ONE ×3 (19:03→21:34)
[2017-01-22] MEDS ORDERED: SODIUM CHLORIDE 0.9% 500 ML with HEPARIN SODIUM,PORCINE 5,000 UNIT IV ONE ×2 (19:31)
[2017-01-22] MEDS ORDERED: PAPAVERINE 30 MG/ML 2 ML VIAL IV STA (19:44)
[2017-01-22] MEDS ORDERED: THROMBIN (BOVINE) 5,000 UNIT VIAL TOPICAL ONE (19:59)
[2017-01-22] MEDS ORDERED: GELATIN SPONGE,ABSORB (LARGE) 1 EACH SPONGE TOPICAL ONE (19:59)
[2017-01-22] MEDS: HYDROmorphone 1 MG/ML 1 ML SYRINGE IVP ONE ×2 (22:55→23:00)
[2017-01-22] MEDS ORDERED: HYDROmorphone 1 MG/ML 1 ML SYRINGE IM PRN (23:11)
[2017-01-22] MEDS ORDERED: ONDANSETRON 4 MG/2 ML VIAL IVP PRN (23:22)
[2017-01-22 23:29] LABS: CH 33.9; CHCM 31.4; HCT 35.1 % (34.0-46.0); HGB 11.1 gm/dL (11.4-16.0); MCH 34.5 pg (25.0-35.0); MCHC 31.7 g/dL (31.0-37.0); MCV 108.8 fL (80.0-100.0); Macrocytosis Marked; Mean Platelet Volume 9.3; RBC 3.23 m/uL (3.80-5.40); RDW 13.5 % (11.5-15.5); WBC 8.6 k/uL (3.8-10.6)
--- NOTE | 2017-01-22 23:35 | P.OP ---
Date of Procedure: 01/22/17 Preoperative Diagnosis: acute right common femoral artery occlusion with critical limb ischemia Postoperative Diagnosis: dissection of right distal external and femoral artery with obstructing false lumen Procedure(s) Performed: repair of right distal external iliac and common femoral dissecton Anesthesia: PRAKASH Surgeon: Elise Dejesus Glass Setter #1: Robin Ely Estimated Blood Loss (ml): 300 IV fluids (ml): 2,400 Urine output (ml): 830 Pathology: none sent Condition: stable Disposition: ICU Indications for Procedure: critical limb ischemia, right leg Operative Findings: dissection of right distal external iliac artery with bleeding into false lumen and obstruction of true lumen Description of Procedure: After induction of adequate general anesthesia via endotracheal tube, the patient's right leg was prepped and draped in the usual sterile fashion. An incision was made transversely along the course of the right common femoral artery just distal to the inguinal ligament. This was carried through the skin and subcutaneous tissues to the femoral sheath. The sheath was incised and the right common femoral, superficial femoral, and profunda femoris arteries were identified and isolated. They were controlled with vascular loops. A perforation in the right common femoral artery with a closure device was noted. At this level there was no evidence of thrombus formation. The patient was given 3000 units of heparin IV. A bovine patch angioplasty of the perforated area was then performed with a 6-0 Prolene running. Prior to completion prograde and retrograde flow through the femoral vessels was assessed. There was adequate flow. The anastomosis was completed. The pulse in the distal right external iliac and right common femoral artery was assessed. There was a significant difference between the pulse in the distal right external iliac and femoral pulse in the right common femoral artery. At first this was felt to be secondary to vasospasm and the area was irrigated with 60 mg of papaverine. At this time, it was felt that a 4 compartment fasciotomy would be required because the patient had a significant ischemia time. An anterolateral fasciotomy was then performed. An incision was made along the anterior compartment. This was carried through the skin and subcutaneous tissues to the fascia of the anterior compartment and the lateral compartment. The fascia of the anterior and lateral compartment was incised along the course of the leg. Attention was directed to the posterior compartments. An incision was made along the course of the popliteal fossa medially. This was carried through the skin and subcutaneous tissues through the fascia of the gastrocnemius into the popliteal space releasing the superficial posterior compartment. The deep posterior compartment was then released by dividing the soleus from the tibia. The gastrocnemius fascia was then incised distally to the malleolus. Attention was then directed to the groin. Again there was a pulse differential between the distal right external iliac artery and the right common femoral artery. There was also discoloration of the lateral wall of the distal external iliac and common femoral artery. The distal external iliac artery was then dissected underneath the inguinal ligament and controlled with a vessel loop and vascular clamps. An arteriotomy was made in the proximal right common femoral artery and carried on to the distal right external iliac artery. Disruption of the posterior wall was noted which resulted in a dissection. The false lumen had thrombosed and was compressing the true lumen and causing obstruction. This thrombus was evacuated and the posterior wall was tacked using 7-0 Prolene sutures. A portion of the intima could not be salvaged and this was removed. At the completion of this portion of the procedure the entire posterior wall was noted to be tacked to the adventitia with no evidence of reentry plane. A second bovine patch angioplasty was performed at this level with a 6-0 Prolene running. Prior to completion prograde and retrograde flow through the vessels was assessed. The flow was found to be adequate. The anastomosis was completed and flow was released distally. There was a palpable right dorsalis pedis pulse at the completion of this portion of the procedure. Hemostasis was assured with Gelfoam, thrombin, electrocautery, and protamine. FloSeal was also used in the groin. The incisions in the leg were closed with lurdes to skin. The incision in the groin was closed as follows. 2-0 PDS interrupted was used to approximate the femoral sheath. 2-0 PDS interrupted was used to approximate the deep subcutaneous tissues. 3-0 PDS interrupted was used to approximate the more superficial subcutaneous tissues. 4-0 PDS interrupted to the most superficial subcutaneous tissues. Lurdes and 4-0 nylon the skin. Dry dressings. [place] and sponge counts were correct. Patient was returned to the recovery room in satisfactory condition. She had a palpable right dorsalis pedis pulse and her right foot was viable. She was able to dorsi and plantar flex her foot and her sensation was intact.
[2017-01-22 23:38] LABS: Anion Gap 5 mmol/L; Blood Urea Nitrogen 10 mg/dL (7-17); Calcium 8.2 mg/dL (8.4-10.2); Carbon Dioxide 25 mmol/L (22-30); Chloride 109 mmol/L (98-107); Creatine Kinase 452 U/L (30-135); Glucose 103 mg/dL (74-99); Magnesium 1.4 mg/dL (1.6-2.3); Non-African American GFR(MDRD) >60 (>60 ml/min/1.73 sqM); Sodium 139 mmol/L (137-145)
[2017-01-23] MEDS: METOPROLOL TARTRATE 12.5 MG TAB PO SCH ×3 (00:48→20:25)
[2017-01-23] MEDS ORDERED: Magnesium Replacement Protocol 1 EACH MISC MISCELLANE PRN (00:50)
[2017-01-23] MEDS: LACTATED RINGERS 1,000 ML IV SCH ×3 (00:50→19:50)
[2017-01-23] MEDS: MAGNESIUM SULFATE-D5W PMX 1 GM in DEXTROSE/WATER 1 100ML.BAG IVPB SCH ×3 (01:06→03:43)
[2017-01-23] MEDS: HYDROmorphone 1 MG/ML 1 ML SYRINGE IVP PRN ×5 (03:12→21:24)
[2017-01-23] MEDS: oxyCODONE-APAP 10-325MG 1 EACH TAB PO PRN ×3 (03:47→18:22)
[2017-01-23] MEDS ORDERED: SODIUM CHLORIDE 0.9% 500 ML IV ONE (05:54)
[2017-01-23 06:12] LABS: Anion Gap 6 mmol/L; Blood Urea Nitrogen 9 mg/dL (7-17); Calcium 8.1 mg/dL (8.4-10.2); Carbon Dioxide 26 mmol/L (22-30); Chloride 106 mmol/L (98-107); Creatine Kinase 406 U/L (30-135); Glucose 103 mg/dL (74-99); Magnesium 2.4 mg/dL (1.6-2.3); Non-African American GFR(MDRD) >60 (>60 ml/min/1.73 sqM); Potassium 3.8 mmol/L (3.5-5.1); Sodium 138 mmol/L (137-145)
[2017-01-23] MEDS ORDERED: Potassium Replacement Protocol 1 EACH MISC MISCELLANE PRN (06:59)
[2017-01-23] MEDS ORDERED: POTASSIUM CHLORIDE ER 20 MEQ TAB.ER PO SCH (07:00)
[2017-01-23 07:02] LABS: CH 34.4; CHCM 32.4; HCT 34.2 % (34.0-46.0); HDW 2.73; HGB 11.1 gm/dL (11.4-16.0); MCH 34.7 pg (25.0-35.0); MCHC 32.4 g/dL (31.0-37.0); Macrocytosis Moderate; Mean Platelet Volume 8.9; RDW 13.6 % (11.5-15.5); WBC 9.6 k/uL (3.8-10.6); WBC (Perox) 10.02
--- NOTE | 2017-01-23 07:48 | XR ---
EXAMINATION TYPE: XR chest 1V portable DATE OF EXAM: 01/23/2017 7:06 AM COMPARISON: Prior chest x-ray 01/22/2017 HISTORY: Cough TECHNIQUE: Single frontal view of the chest is obtained. FINDINGS: Similar to prior exam there is marked prominence of the aortic pulmonary window region. In terstitium is increased. No pneumothorax or pleural effusion. Heart is enlarged. There are overlying cardiac leads. Patchy basilar density noted. IMPRESSION: Mediastinal mass, recommend chest CT. Correlate for possible pulmonary venous hypertensi on and interstitial edema. Follow-up is recommended.
[2017-01-23 08:19] LABS: Add Differential Manual Differential
[2017-01-23] MEDS: ENOXAPARIN 40 MG/0.4 ML SYRINGE SQ SCH (08:34)
[2017-01-23] MEDS: ASPIRIN 325 MG TAB PO SCH (08:34)
[2017-01-23] MEDS: FAMOTIDINE 20 MG TAB PO SCH (08:35)
[2017-01-23] MEDS: CLOPIDOGREL 75 MG TAB PO SCH (08:35)
[2017-01-23] MEDS: LACTULOSE 20 GM/30 ML CUP PO SCH ×3 (08:36→21:26)
[2017-01-23 08:50] LABS: Nucleated Red Blood Cells 0 /100 WBC (0-0); Total Cells Counted 100
[2017-01-23 08:57] LABS: Howell-Jolly Bodies Present
[2017-01-23 08:58] LABS: Target Cells Present
--- NOTE | 2017-01-23 09:32 | PN ---
This is a 41-year-old female that was transferred from the ER in the ICU at [facility] to the production laborer here. She had a catheterization, which showed a small distal LAD lesion. That was just part of the problem. She apparently overdosed on morphine sulfate. She had mental status changes. She was given Narcan and transferred to the ICU. The patient did have some chest pain with some elevated troponins and that is why she went to the production laborer. Subsequent to that, she developed right lower extremity pain and pulseless right lower extremity. Vascular Surgery was consulted. They ended up taking her to the operating room at which time she had an embolectomy, I believe, and a fasciotomy of the right lower leg. Anyway, she does have a pulse now in that right lower extremity. In addition, she gave a lot of different history including a previous CMV infection at a very young age, previous splenectomy, appendectomy, tonsillectomy, adenoidectomy, cholecystectomy and DVT in the left leg. She was also told that she had a history of portal hypertension, esophageal varices, cirrhosis and previous history of IV heroin and methamphetamine use. She also has a history of chronic liver failure and previously has had liver biopsy. Also admits to pancreatitis and peritonitis. On a whim I went ahead and ordered some hepatitis serology. Sure enough, her hepatitis C serology is positive. She was started on lactulose. An ultrasound was done to rule out ascites. It was negative. She is resting comfortably today. Current vital signs include a temperature 98.3, heart rate 69, respiratory rate 18, blood pressure 98/64, mean 75 and a saturation of 98% on 5 L, that is being titrated down. Appears in no acute distress, looks well. HEENT examination is grossly unremarkable. Mucous membranes are moist. NECK: Supple. Cardiovascular examination reveals regular rhythm and rate. Lungs reveal a few scattered rhonchi. No wheezes or crackles. ABDOMEN: Soft and mildly distended. No fluid wave. Extremities are intact. The right lower extremity is wrapped. There is a pulse at the dorsalis pedis area. The skin is without rash. NEUROLOGIC EXAMINATION: Nonfocal. Lab data is reviewed. Her white count 9.6, hemoglobin 11.1, hematocrit 34.2, platelet count 156,000. Sodium, potassium and chloride, and CO2 all normal. BUN and creatinine were 9 and 0.5. Her CK was 406. Her hep C serology was positive. Her urine hCG was negative. She is currently getting an IV of LR at 100. No IV heparin. All her microbiology is negative. Her chest x-ray continues to show a mediastinal mass. She will need a CT scan of the chest to evaluate that, will wait until she gets out to the floor. ASSESSMENT: 1. Femoral artery occlusion, status post repair of distal external iliac and common femoral artery dissection and a fasciotomy. 2. Morphine sulfate overdose, improved with Narcan drip. 3. Status post cardiac catheterization with small distal left anterior descending artery lesion, to be managed medically. 4. History of previous drug abuse with heroin and methamphetamine. 5. Hepatitis C. 6. History of esophageal varices. 7. History of chronic cirrhosis and chronic liver disease. 8. Portal hypertension. 9. History of right deep venous thrombosis. 10. Previous splenectomy. 11. Previous history of CMV infection. 12. History of pancreatitis. 13. History of ascites. PLAN: I have consulted GI to have them evaluate her chronic liver disease. She has had a previous biopsy. The patient is improved. Will continue to follow. Probably can be discharged out of the unit later today or tomorrow. Surgery has seen her and has done the repair of the dissected right distal external and femoral artery with the obstructing false lumen. Will continue to follow closely. Prognosis is guarded. Medications are reviewed.
--- NOTE | 2017-01-23 10:45 | P.PN ---
Subjective Principal diagnosis: Acute coronary syndrome This is a pleasant 41-year-old female patient who was brought by her to the emergency room at [facility] after he found her on the floor at home unresponsive. The patient took her friend's oral morphine and then she became unresponsive. On arrival to the emergency room she was obtunded then she started gaining her consciousness. She was admitted to the intensive care unit. At the intensive care unit, the patient was experiencing chest discomfort as tightness across the chest was some radiation to the left arm. The EKG showed sinus rhythm with nonspecific changes in the anteroseptal leads. She underwent a 3 sets of cardiac enzymes came in to be abnormal and consistent with acute myocardial infarction. In view of the ongoing chest discomfort the patient was transferred emergently to [facility] and she underwent a heart catheterization which showed the occlusion of the very distal LAD where it became small caliber vessel. I decided to pursue a medical treatment only in view of the small nature of the LAD. She did not have any other residual disease involving the left circumflex or the right coronary artery. Yesterday she was found to have diminished right femoral pulse. A CTA was performed and showed subtotal occlusion of the right common femoral artery. Subsequently the patient was seen and evaluated by vascular surgeon who took the patient to the OR and did explore the right femoral artery and repair the right femoral artery as well. I'll follow-up with the patient today, she is a slightly lethargic but she is taking pain medications. She denies having any chest discomfort at this point. I recommended continue the current medical treatment was dual antiplatelet therapy. We will continue holding statin. The CK has been coming down. She underwent an echocardiogram which showed preserved left ventricular systolic function. Objective - Vital Signs Vital signs: Vital Signs Temp 98.2 F 01/23/17 09:00 Pulse 79 01/23/17 09:00 Resp 20 01/23/17 09:00 BP 116/75 01/23/17 09:00 Pulse Ox 95 01/23/17 09:25 Intake & Output 01/22/17 01/23/17 01/23/17 18:59 06:59 18:59 Intake Total 3500.547 3744 1000 Output Total 480 1502 60 Balance 734.200 6016 940 Weight 70.8 kg Intake: IV 900 3656 800 Lactated Ringers 1,000 ml 100 300 @ 100 mls/hr IV .Q10H [facility] Rx#:[id number] Magnesium Sulfate-D5w Pmx 300 1 gm In Dextrose/Water 1 100ml.bag @ 100 mls/hr IVPB Q1H [facility] Rx#: [id number] Sodium Chloride 0.9% 1, 900 450 000 ml @ 75 mls/hr IV . [id number] [facility] Rx#:[id number] Sodium Chloride 0.9% 500 500 ml @ 999 mls/hr IV .Q31M [facility] Rx#:[id number] Intake, IV Titration 149.411 Amount Heparin Sodium,Porcine/ 149.411 D5w Pmx 25,000 unit In Dextrose/Water 1 500ml. bag @ 18 UNITS/KG/HR 26. 06 mls/hr IV .[id number] [facility] Rx#:[id number] Oral 200 Output: Urine 480 1202 60 Estimated Blood Loss 300 Other: Voiding Method Indwelling Catheter Indwelling Catheter Indwelling Catheter - Constitutional General appearance: Present: no acute distress - Respiratory Respiratory: bilateral: CTA - Cardiovascular Rhythm: regular Heart sounds: normal: S1, S2 - Labs CBC & Chem 7: 01/23/17 05:45 01/23/17 05:45 Labs: Abnormal Lab Results - Last 24 Hours (Table) 01/22/17 01/22/17 01/22/17 Range/Units 07:29 15:26 23:08 RBC (3.80-5.40) m/uL Hgb (11.4-16.0) gm/dL MCV (80.0-100.0) fL Plt Count (150-450) k/uL Monocytes # (Manual) (0-1.0) k/uL APTT 127.4 H* (22.0-30.0) sec Chloride 109 H (98-107) mmol/L Creatinine 0.50 L (0.52-1.04) mg/dL Glucose 103 H (74-99) mg/dL Calcium 8.2 L (8.4-10.2) mg/dL Magnesium 1.4 L (1.6-2.3) mg/dL Total Bilirubin 1.8 H (0.2-1.3) mg/dL Delta Bilirubin 0.7 H (0.0-0.2) mg/dL AST 137 H (14-36) U/L ALT 78 H (9-52) U/L Alkaline Phosphatase 228 H (38-126) U/L Creatine Kinase 452 H (30-135) U/L Total Protein 5.7 L (6.3-8.2) g/dL Albumin 2.7 L (3.5-5.0) g/dL 01/22/17 01/23/17 01/23/17 Range/Units 23:08 05:45 05:45 RBC 3.23 L 3.20 L (3.80-5.40) m/uL Hgb 11.1 L 11.1 L (11.4-16.0) gm/dL MCV 108.8 H 107.0 H (80.0-100.0) fL Plt Count 135 L (150-450) k/uL Monocytes # (Manual) 1.2 H (0-1.0) k/uL APTT (22.0-30.0) sec Chloride (98-107) mmol/L Creatinine 0.50 L (0.52-1.04) mg/dL Glucose 103 H (74-99) mg/dL Calcium 8.1 L (8.4-10.2) mg/dL Magnesium 2.4 H (1.6-2.3) mg/dL Total Bilirubin (0.2-1.3) mg/dL Delta Bilirubin (0.0-0.2) mg/dL AST (14-36) U/L ALT (9-52) U/L Alkaline Phosphatase (38-126) U/L Creatine Kinase 406 H (30-135) U/L Total Protein (6.3-8.2) g/dL Albumin (3.5-5.0) g/dL Assessment and Plan Plan: Assessment Acute coronary syndrome Occluded very distal LAD Critical limb ischemia Plan Dual antiplatelet therapy Anti-ischemic medication Follow-up with the patient
--- NOTE | 2017-01-23 11:23 | P.PN ---
Subjective 41-year-old female who apparently moved from [place] recently does not have any primary care physician and down who was admitted to [facility] through [facility] apartment because of unresponsiveness found to have drug overdose by taking a longer acting morphine between 1620 mg at bedtime. According to the with the story told to the emergency department at this was suicidal attempt. Patient was admitted initially to the ICU at [facility] and troponin was mildly elevated shortly after admission developed to have increased chest pain worsening abnormal finding on EKG along with elevated troponin. Dr. Cid decided to transfer patient to [facility] to the labor economics professor for emergency heart catheter for CRAIG OR. Patient was transferred and end up having an emergency heart catheter finding consistent with distal LAD thrombus. The artery was very small could not do an angioplasty and stent placement. Patient was admitted to the ICU afterward. 01/23: She was seen by Dr. Dejesus for acute right leg ischemia with right common for femoral occulsion repair of the right distal external iliac and common femoral dissection. She was seen by Dr. Hendricks psychiatry she is not an imminent threat to self. Case was discussed with psychiatry today there is concern for suicidal ideation. The chest x-ray shows mediastinal Mass. recommend chest CT correlate for possible pulmonary venous hypertension and interstitial edema. Patient is followed by Dr. Michelle for intensive care management. Her sound of abdomen showed no ascites. Echocardiogram showed mild mitral regurgitation, mild concentric left ventricular hypertrophy and an ejection fraction of 50-55%. Hepatitis C is reactive discussed test results with patient today. Objective - Vital Signs Vital signs: Vital Signs Temp 98.2 F 01/23/17 09:00 Pulse 86 01/23/17 10:00 Resp 20 01/23/17 10:00 BP 104/67 01/23/17 10:00 Pulse Ox 98 01/23/17 10:00 Intake & Output 01/22/17 01/23/17 01/23/17 18:59 06:59 18:59 Intake Total 5594.326 2576 1100 Output Total 480 1502 90 Balance 250.910 0603 1010 Weight 70.8 kg Intake: IV 900 3656 900 Lactated Ringers 1,000 ml 100 400 @ 100 mls/hr IV .Q10H [facility] Rx#:[id number] Magnesium Sulfate-D5w Pmx 300 1 gm In Dextrose/Water 1 100ml.bag @ 100 mls/hr IVPB Q1H [facility] Rx#: [id number] Sodium Chloride 0.9% 1, 900 450 000 ml @ 75 mls/hr IV . [id number] [facility] Rx#:[id number] Sodium Chloride 0.9% 500 500 ml @ 999 mls/hr IV .Q31M [facility] Rx#:[id number] Intake, IV Titration 149.411 Amount Heparin Sodium,Porcine/ 149.411 D5w Pmx 25,000 unit In Dextrose/Water 1 500ml. bag @ 18 UNITS/KG/HR 26. 06 mls/hr IV .[id number] [facility] Rx#:[id number] Oral 200 Output: Urine 480 1202 90 Estimated Blood Loss 300 Other: Voiding Method Indwelling Catheter Indwelling Catheter Indwelling Catheter - Exam General appearance: no average body habitus, cooperative, no disheveled, no mild distress, no morbidly obese, no acute distress, no obese, no severe distress, no thin - EENT Eyes: abnormal pupil, no anicteric sclerae, no disc margins sharp, no edentulous , no EOMI, no PERRLA, no fundus normal, no photophobia, no dentition normal, no poor dentition, no ptosis, no scleral icterus, normal appearance ENT: no hard of hearing, no hearing grossly normal, no NA/AT, normal oropharynx , no other, no pharyngeal erythema, no thrush, no tonsillar exudates, no tonsillar swelling Ears: bilateral: normal - Neck Neck: no lymphadenopathy, normal ROM, no other, no rigidity, no stridor, no thyromegaly Carotids: bilateral: upstroke normal Thyroid: bilateral: normal size - Respiratory Respiratory: bilateral: CTA, diminished - Cardiovascular Rhythm: regular Heart sounds: normal: S1, S2 Abnormal Heart Sounds: systolic murmur - Gastrointestinal General gastrointestinal: no absent bowel sounds, no decreased bowel sounds, distended, no hepatomegaly, no hyperactive bowel sounds, no normal bowel sounds , no organomegaly, no rigid, no scaphoid, soft, no splenomegaly, no tenderness, no umbilical hernia, no ventral hernia - Integumentary Integumentary: no calor, no cellulitis, no cyanotic, no decreased turgor, no flushed, no jaundiced, no normal, no normal turgor, pale, rash, no ulcer - Neurologic Neurologic: CNII-XII intact - Musculoskeletal Musculoskeletal: gait normal, generalized weakness, strength equal bilaterally, no right sided weakness, no left sided weakness - Psychiatric Psychiatric: A&O x's 3, appropriate affect - Labs CBC & Chem 7: 01/23/17 05:45 01/23/17 05:45 Labs: Abnormal Lab Results - Last 24 Hours (Table) 01/22/17 01/22/17 01/22/17 Range/Units 07:29 15:26 23:08 RBC (3.80-5.40) m/uL Hgb (11.4-16.0) gm/dL MCV (80.0-100.0) fL Plt Count (150-450) k/uL Monocytes # (Manual) (0-1.0) k/uL APTT 127.4 H* (22.0-30.0) sec Chloride 109 H (98-107) mmol/L Creatinine 0.50 L (0.52-1.04) mg/dL Glucose 103 H (74-99) mg/dL Calcium 8.2 L (8.4-10.2) mg/dL Magnesium 1.4 L (1.6-2.3) mg/dL Total Bilirubin 1.8 H (0.2-1.3) mg/dL Delta Bilirubin 0.7 H (0.0-0.2) mg/dL AST 137 H (14-36) U/L ALT 78 H (9-52) U/L Alkaline Phosphatase 228 H (38-126) U/L Creatine Kinase 452 H (30-135) U/L Total Protein 5.7 L (6.3-8.2) g/dL Albumin 2.7 L (3.5-5.0) g/dL 01/22/17 01/23/17 01/23/17 Range/Units 23:08 05:45 05:45 RBC 3.23 L 3.20 L (3.80-5.40) m/uL Hgb 11.1 L 11.1 L (11.4-16.0) gm/dL MCV 108.8 H 107.0 H (80.0-100.0) fL Plt Count 135 L (150-450) k/uL Monocytes # (Manual) 1.2 H (0-1.0) k/uL APTT (22.0-30.0) sec Chloride (98-107) mmol/L Creatinine 0.50 L (0.52-1.04) mg/dL Glucose 103 H (74-99) mg/dL Calcium 8.1 L (8.4-10.2) mg/dL Magnesium 2.4 H (1.6-2.3) mg/dL Total Bilirubin (0.2-1.3) mg/dL Delta Bilirubin (0.0-0.2) mg/dL AST (14-36) U/L ALT (9-52) U/L Alkaline Phosphatase (38-126) U/L Creatine Kinase 406 H (30-135) U/L Total Protein (6.3-8.2) g/dL Albumin (3.5-5.0) g/dL Assessment and Plan Plan: 1 ST elevation OR: Patient had an angiogram with finding consistent with distal LAD blockage no angioplasty was done. Patient will be continue on secondary prevention at this point CK with troponin will be repeated can patient will be going for an echocardiogram. 2acute right leg ischemia with right common for femoral occulsion repair of the right distal external iliac and common femoral dissection 3 CAD: With new onset of OR from yesterday awaiting for echo patient would have secondary prevention with the current symptom will be started on beta faith, Elliott, statin and possible isosorbide. 4 drug overdose: Was mostly long acting morphine was reversed with Narcan patient claimed this was incidental more than suicidal attempt. With the current symptoms patient be seen psychiatry and need to be cleared by psych before leaving the hospital. 5 advanced liver disease: Either primary biliary cirrhosis or congenital CMV, liver function tests will be repeated daily patient was started on lactulose further management and possible follow-up with hepatology need to be done. Patient is hepatitis C positive. 6 portal hypertension: Patient had this is secondary to advanced liver disease. 7 previous history of GI bleed: Patient will continue on Pepcid and either nadolol for esophageal varices or other beta faith. 8 possible drug addiction: Patient uses heroin in the past and on methamphetamine, patient be seen psych. 9 DVT prophylaxis: Patient will be on heparin subcutaneous. 10 GI prophylaxis: Continue patient on Pepcid daily. CODE STATUS: Full code. Expectation from this admission: Patient to the hospital for more than 2 nights. The above impression and plan of care have been discussed and directed by signing physician. Zenobia Caal nurse practitioner acting as scribe for signing physician.
--- NOTE | 2017-01-23 13:44 | P.PN ---
Progress Note - Text A patient with stable today post right external and common femoral artery repair and fasciotomy of the right leg she's been complaining of some pain in the right groin area dressing is changed incision site is healing good patient has a palpable dorsal pedis and posttibial Eschen in stable from a vascular point of view we will DC the Crockett catheter if his okay with cardiology patient can go to the [address]
--- NOTE | 2017-01-23 14:42 | P.CONS ---
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 Recent heart catheterization for chest pain; distal LAD disease without PCI or intervention. Subsequently developed diminished right femoral pulse. CTA showed subtotal occlusion of the right common femoral artery she underwent exploration of the right femoral artery with repair. Consultation requested for portal hypertension and subsequent hepatitis panel reporting reactive hepatitis C antibody. She has a history of IVDA heroin abuse about 5 years ago last usage was about 3 years ago. No history of alcohol abuse or other known liver disorders. No history of autoimmune diseases. She used to reside in the [facility]. Patient thinks she may have had a paracentesis performed in the past. She is quite obtunded this morning with an elevated ammonia level and receiving intravenous pain medication so history is somewhat limited. History has been elicited from patient medical records and nursing staff. Ultrasound abdomen yesterday reported no evidence of ascites; ordered as limited exam. Admission white count 9.9. Hemoglobin 11.6. MCV 108. Platelet 146. INR 1.2. Total bilirubin 1.8. AST 101. ALT 78. Alkaline phosphatase 220. Ammonia 109. Hepatitis negative A/B. Hepatitis C antibody reactive. Patient denies history of hepatitis C testing. No history of known hepatitis C infection. Review of Systems Constitutional: Denies fever, chills, sweats, weight gain, or loss. HEENT: Negative for migraines, blurred vision or loss, earaches, drainage, tinnitus, oral mucosal lesions, dysphagia, or odynophagia. CARDIAC: Hypertension Negative for chest pain, arrhythmias, or palpitation. RESPIRATORY: Negative for shortness of breath, hemoptysis, cough, or sputum production. GI: See HPI for pertinent findings. : Negative for hematuria, urgency, frequency, polyuria, or dysuria. GYNc: Denies possibility of . Negative vaginal discharge. MUSCULOSKELETAL: Negative for muscle aches, swelling, arthritis, and arthralgias. NEUROLOGIC: Negative for stroke or TIA. Hematologic; history of DVT. ENDOCRINE: Negative for thyroid problems. SKIN: Negative for rash or itching. 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 Vein removed from left leg due to DVT 17 years ago Past Anesthesia/Blood Transfusion Reactions: No Reported Reaction Smoking Status: Never smoker Past Drug Use History: Heroin, IV Drug Use, Methamphetamine Additional Drug Use History / Comment(s): early 30s - Past Family History Father Family Medical History: Liver Disease Additional Family Medical History / Comment(s): Drug Use Mother Family Medical History: Thyroid Disorder Additional Family Medical History / Comment(s): Lupus, hypothyroid Medications and Allergies Home Medications Medication Instructions Recorded Confirmed Type [phone] 1 tab PO BID PRN 01/22/17 01/22/17 History [Excedrin] diphenhydrAMINE HCL [Benadryl] 25 mg PO HS PRN 01/22/17 01/22/17 History Allergies Allergy/AdvReac Type Severity Reaction Status Date / Time flumazenil Allergy Rash/Hives Verified 01/22/17 08:24 latex Allergy Rash/Hives Verified 01/22/17 08:24 Physical Exam Vitals: Vital Signs Temp Pulse Pulse Resp BP BP Pulse Ox 01/23/17 11:00 89 20 118/89 99 01/23/17 10:00 86 20 104/67 98 01/23/17 09:25 95 01/23/17 09:00 98.2 F 79 20 116/75 98 01/23/17 08:00 77 24 118/74 99 01/23/17 07:00 68 12 110/78 99 01/23/17 06:00 64 15 107/78 99 01/23/17 05:00 63 22 117/80 97 01/23/17 04:00 98.3 F 69 18 98/64 98 01/23/17 03:00 72 12 97/63 98 01/23/17 02:00 98.5 F 93 20 98/65 97 01/23/17 01:00 98.5 F 92 29 H 109/66 98 01/23/17 00:09 98.5 F 68 16 114/73 96 01/23/17 00:00 98.7 F 74 16 114/73 95 01/22/17 23:55 87 13 107/73 94 L 01/22/17 23:31 90 18 106/69 97 01/22/17 23:17 84 18 121/69 96 01/22/17 23:00 84 18 123/70 96 01/22/17 22:50 98.5 F 92 18 123/79 96 01/22/17 18:00 79 45 H 119/79 97 01/22/17 17:00 72 15 110/78 98 01/22/17 16:00 64 12 105/81 97 01/22/17 15:00 60 14 118/77 98 01/22/17 14:00 60 12 103/75 100 01/22/17 13:00 73 12 110/77 97 01/22/17 12:00 98.1 F 81 84 14 110/78 97 01/22/17 11:45 96 Intake and Output 01/22/17 01/23/17 01/23/17 22:59 06:59 14:59 Intake Total 3100.411 1005 1200 Output Total 1290 372 120 Balance 1810.343 222 4828 Intake: IV 2951 1005 1000 Lactated Ringers 1,000 ml 100 500 @ 100 mls/hr IV .Q10H [facility] Rx#:[id number] Magnesium Sulfate-D5w Pmx 300 1 gm In Dextrose/Water 1 100ml.bag @ 100 mls/hr IVPB Q1H [facility] Rx#: [id number] Sodium Chloride 0.9% 1, 300 450 000 ml @ 75 mls/hr IV . [id number] [facility] Rx#:[id number] Sodium Chloride 0.9% 500 500 ml @ 999 mls/hr IV .Q31M [facility] Rx#:[id number] Intake, IV Titration 149.411 Amount Heparin Sodium,Porcine/ 149.411 D5w Pmx 25,000 unit In Dextrose/Water 1 500ml. bag @ 18 UNITS/KG/HR 26. 06 mls/hr IV .[id number] [facility] Rx#:[id number] Oral 200 Output: Urine 990 372 120 Estimated Blood Loss 300 Other: Voiding Method Indwelling Catheter Indwelling Catheter Indwelling Catheter Weight 70.8 kg General appearance: The patient is sleepy but easily awakened with appropriate conversation, oriented, in no acute distress. HET: Head is normocephalic and atraumatic. Pupils are equal and reactive. Oropharynx is clear without lesions. Neck: Supple without lymphadenopathy. Trachea midline. Heart: S1 S2. Regular rate and rhythm. Lungs: No crackles or wheezes are heard. Abdomen: Soft, nontender, bloated with no appreciable ascites with bowel sounds. No peritoneal signs. No palpable organomegaly or masses. Extremities: Right lower extremity dressing intact with palpable DP /PT . Neurological: No focal deficits. Strength and sensation are grossly intact. Results CBC & Chem 7: 01/24/17 06:18 01/24/17 06:18 Labs: Abnormal Lab Results - Last 24 Hours (Table) 01/22/17 01/22/17 01/22/17 Range/Units 07:29 15:26 23:08 RBC (3.80-5.40) m/uL Hgb (11.4-16.0) gm/dL MCV (80.0-100.0) fL Plt Count (150-450) k/uL Monocytes # (Manual) (0-1.0) k/uL APTT 127.4 H* (22.0-30.0) sec Chloride 109 H (98-107) mmol/L Creatinine 0.50 L (0.52-1.04) mg/dL Glucose 103 H (74-99) mg/dL Calcium 8.2 L (8.4-10.2) mg/dL Magnesium 1.4 L (1.6-2.3) mg/dL Total Bilirubin 1.8 H (0.2-1.3) mg/dL Delta Bilirubin 0.7 H (0.0-0.2) mg/dL AST 137 H (14-36) U/L ALT 78 H (9-52) U/L Alkaline Phosphatase 228 H (38-126) U/L Creatine Kinase 452 H (30-135) U/L Total Protein 5.7 L (6.3-8.2) g/dL Albumin 2.7 L (3.5-5.0) g/dL 0501/23/17 01/23/17 Range/Units 23:08 05:45 05:45 RBC 3.23 L 3.20 L (3.80-5.40) m/uL Hgb 11.1 L 11.1 L (11.4-16.0) gm/dL MCV 108.8 H 107.0 H (80.0-100.0) fL Plt Count 135 L (150-450) k/uL Monocytes # (Manual) 1.2 H (0-1.0) k/uL APTT (22.0-30.0) sec Chloride (98-107) mmol/L Creatinine 0.50 L (0.52-1.04) mg/dL Glucose 103 H (74-99) mg/dL Calcium 8.1 L (8.4-10.2) mg/dL Magnesium 2.4 H (1.6-2.3) mg/dL Total Bilirubin (0.2-1.3) mg/dL Delta Bilirubin (0.0-0.2) mg/dL AST (14-36) U/L ALT (9-52) U/L Alkaline Phosphatase (38-126) U/L Creatine Kinase 406 H (30-135) U/L Total Protein (6.3-8.2) g/dL Albumin (3.5-5.0) g/dL Assessment and Plan (1) Elevated liver enzymes Narrative/Plan: Reported history of chronic liver disease possible esophageal varices possible portal hypertension. Etiology unclear possible autoimmune possible cryptogenic. Status: Acute (2) Chronic liver disease Narrative/Plan: possible cirrhosis Status: Acute (3) Heroin abuse Status: Acute (4) Drug overdose Status: Acute (5) Occlusion of common femoral artery Status: Acute (6) Hepatic encephalopathy Status: Acute (7) Hepatitis C antibody positive in blood Status: Acute (8) Acute coronary syndrome Status: Acute Plan: 1. Additional serology for hepatitis C testing and autoimmune hepatitis/chronic liver disease workup. AFP level. 2. US abdomen in am to evaluate liver. Lactulose increased TID ; titrate 3 BM daily; await repeat ammonia level. 3. Will follow with you. Thank you for this kind referral and the opportunity to participate in the care of your patient. This consultation was discussed with Dr. Shepard. The impression and plan of care have been directed as dictated.
[2017-01-24] MEDS: HYDROmorphone 1 MG/ML 1 ML SYRINGE IVP PRN ×5 (05:43→23:24)
[2017-01-24] MEDS: LACTATED RINGERS 1,000 ML IV SCH ×2 (05:43→15:45)
[2017-01-24 06:52] LABS: Basophils % (A) 0 %; CH 34.7; CHCM 32.4; Eosinophils # (A) 0.4 k/uL (0-0.7); Eosinophils % (A) 4 %; HCT 33.5 % (34.0-46.0); HDW 2.83; HGB 11.1 gm/dL (11.4-16.0); Luc # (Auto) 0.41; Luc % (Auto) 4; Lymphocytes # (A) 2.1 k/uL (1.0-4.8); Lymphocytes % (A) 20 %; MCH 35.7 pg (25.0-35.0); MCHC 33.1 g/dL (31.0-37.0); MCV 107.8 fL (80.0-100.0); Macrocytosis Moderate; Mean Platelet Volume 9.1; Monocytes % (A) 10 %; Neutrophils # (A) 6.7 k/uL (1.3-7.7); Neutrophils % (A) 62 %; RBC 3.11 m/uL (3.80-5.40); RDW 14.3 % (11.5-15.5); WBC 10.7 k/uL (3.8-10.6); WBC (Perox) 10.62
[2017-01-24 07:29] LABS: ALT 69 U/L (9-52); AST 78 U/L (14-36); Alkaline Phosphatase 223 U/L (38-126); Anion Gap 3 mmol/L; Blood Urea Nitrogen 8 mg/dL (7-17); Carbon Dioxide 28 mmol/L (22-30); Chloride 107 mmol/L (98-107); Glucose 100 mg/dL (74-99); Magnesium 1.7 mg/dL (1.6-2.3); Non-African American GFR(MDRD) >60 (>60 ml/min/1.73 sqM); Potassium 3.8 mmol/L (3.5-5.1); Sodium 138 mmol/L (137-145); Total Bilirubin 1.4 mg/dL (0.2-1.3); Total Protein 5.3 g/dL (6.3-8.2)
[2017-01-24] MEDS: METOPROLOL TARTRATE 12.5 MG TAB PO SCH ×2 (08:06→20:14)
[2017-01-24] MEDS: ASPIRIN 325 MG TAB PO SCH (08:06)
[2017-01-24] MEDS: CLOPIDOGREL 75 MG TAB PO SCH (08:09)
[2017-01-24] MEDS: ENOXAPARIN 40 MG/0.4 ML SYRINGE SQ SCH (08:09)
[2017-01-24] MEDS: LACTULOSE 20 GM/30 ML CUP PO SCH ×4 (08:10→20:21)
[2017-01-24] MEDS: FAMOTIDINE 20 MG TAB PO SCH (08:10)
[2017-01-24 08:26] LABS: Manual Review Performed; Polychromasia Present
--- NOTE | 2017-01-24 08:48 | P.PN ---
Subjective Principal diagnosis: hepatic cephalopathy hepatitis C reactive antibody 41-year-old female history of ACS status post heart catheterization with right lower extremity ischemia status post surgery. Evaluated yesterday for hepatic encephalopathy with history of IVDA heroin abuse suspected underlying chronic liver disease and reactive hepatitis C antibody. More alert this morning. Ammonia level decreased. Afebrile. Objective - Vital Signs Vital signs: Vital Signs Temp 97.8 F 01/24/17 04:00 Pulse 79 01/24/17 05:00 Resp 17 01/24/17 05:00 BP 104/76 01/24/17 05:00 Pulse Ox 97 01/24/17 05:00 Intake & Output 01/23/17 01/24/17 01/24/17 18:59 06:59 18:59 Intake Total 2340 1200 Output Total 270 Balance 2070 1200 Weight 75.4 kg Intake: IV 1700 1200 Lactated Ringers 1,000 ml 1200 1200 @ 100 mls/hr IV .Q10H [facility] Rx#:[id number] Sodium Chloride 0.9% 500 500 ml @ 999 mls/hr IV .Q31M [facility] Rx#:[id number] Oral 640 Output: Urine 270 Other: Voiding Method Indwelling Catheter Indwelling Catheter # Voids 1 # Bowel Movements 1 - Exam General appearance: The patient is sleepy but easily awakened with appropriate conversation, oriented, in no acute distress. HET: Head is normocephalic and atraumatic. Pupils are equal and reactive. Oropharynx is clear without lesions. Neck: Supple without lymphadenopathy. Trachea midline. Heart: S1 S2. Regular rate and rhythm. Lungs: No crackles or wheezes are heard. Abdomen: Soft, nontender, bloated with no appreciable ascites with bowel sounds. No peritoneal signs. No palpable organomegaly or masses. Extremities: Right lower extremity dressing intact with palpable DP /PT . Neurological: No focal deficits. Strength and sensation are grossly intact. - Labs CBC & Chem 7: 01/24/17 06:18 01/24/17 06:18 Labs: Abnormal Lab Results - Last 24 Hours (Table) 01/23/17 01/23/17 01/24/17 Range/Units 05:45 11:30 06:18 WBC 10.7 H (3.8-10.6) k/uL RBC 3.20 L 3.11 L (3.80-5.40) m/uL Hgb 11.1 L 11.1 L (11.4-16.0) gm/dL Hct 33.5 L (34.0-46.0) % MCV 107.0 H 107.8 H (80.0-100.0) fL MCH 35.7 H (25.0-35.0) pg Monocytes # (Manual) 1.2 H (0-1.0) k/uL Creatinine (0.52-1.04) mg/dL Glucose (74-99) mg/dL Calcium (8.4-10.2) mg/dL Total Bilirubin (0.2-1.3) mg/dL AST (14-36) U/L ALT (9-52) U/L Alkaline Phosphatase (38-126) U/L Ammonia 58 H (<30) umol/L Total Protein (6.3-8.2) g/dL Albumin (3.5-5.0) g/dL 01/24/17 Range/Units 06:18 WBC (3.8-10.6) k/uL RBC (3.80-5.40) m/uL Hgb (11.4-16.0) gm/dL Hct (34.0-46.0) % MCV (80.0-100.0) fL MCH (25.0-35.0) pg Monocytes # (Manual) (0-1.0) k/uL Creatinine 0.48 L (0.52-1.04) mg/dL Glucose 100 H (74-99) mg/dL Calcium 8.0 L (8.4-10.2) mg/dL Total Bilirubin 1.4 H (0.2-1.3) mg/dL AST 78 H (14-36) U/L ALT 69 H (9-52) U/L Alkaline Phosphatase 223 H (38-126) U/L Ammonia (<30) umol/L Total Protein 5.3 L (6.3-8.2) g/dL Albumin 2.4 L (3.5-5.0) g/dL Assessment and Plan (1) Elevated liver enzymes Status: Acute (2) Chronic liver disease Status: Acute (3) Heroin abuse Status: Acute (4) Drug overdose Status: Acute (5) Occlusion of common femoral artery Status: Acute (6) Hepatic encephalopathy Status: Acute (7) Hepatitis C antibody positive in blood Status: Acute (8) Acute coronary syndrome Status: Acute Plan: 1. Ultrasound abdomen pending. 2. Ammonia level improved continue with lactulose titrated 3-4 bowel movements a day. 3. Follow up in GI office 1-2 weeks after discharge for reevaluation. 4. Will continue to follow. Assessment and plan of care discussed with Dr. Shepard.
--- NOTE | 2017-01-24 09:12 | US ---
EXAMINATION TYPE: US abdomen limited DATE OF EXAM: 01/24/2017 7:37 AM COMPARISON: NONE CLINICAL HISTORY: 41 year-old female history of liver disease. H/o cholecystectomy. TECHNIQUE: Multiple sonographic images of the right upper quadrant are obtained. FINDINGS: Liver Length: 12.8 cm CBD: 5.4 mm Right Kidney: 9.3 x 5.2 x 5.1 cm Pancreas: Obscured by bowel gas Liver: Portions of the liver are obscured by overlying bowel gas, intercostal imaging suggests nodul ar contour and mild perihepatic ascites. Gallbladder: Surgically absent Evidence for sonographic Eaton's sign: no CBD: wnl Right Kidney: No hydronephrosis. Mild abdominal ascites is noted. IMPRESSION: 1. Limited intercostal views of the liver suggests nodular contour. Correlate for underlying cirrhosi s. Note that only portions of the liver are visualized. 2. Status post cholecystectomy. No biliary ductal dilatation. 3. Mild abdominal ascites.
--- NOTE | 2017-01-24 09:35 | P.PN ---
Subjective Principal diagnosis: Acute coronary syndrome This is a pleasant 41-year-old female patient who was brought by her to the emergency room at [facility] after he found her on the floor at home unresponsive. The patient took her friend's oral morphine and then she became unresponsive. On arrival to the emergency room she was obtunded then she started gaining her consciousness. She was admitted to the intensive care unit. At the intensive care unit, the patient was experiencing chest discomfort as tightness across the chest was some radiation to the left arm. The EKG showed sinus rhythm with nonspecific changes in the anteroseptal leads. She underwent a 3 sets of cardiac enzymes came in to be abnormal and consistent with acute myocardial infarction. In view of the ongoing chest discomfort the patient was transferred emergently to [facility] and she underwent a heart catheterization which showed the occlusion of the very distal LAD where it became small caliber vessel. I decided to pursue a medical treatment only in view of the small nature of the LAD. She did not have any other residual disease involving the left circumflex or the right coronary artery. The heart catheterization was complicated by acute closure of the right common femoral artery where the patient underwent surgical exploration of the right common femoral artery. From a cardiac vascular standpoint overview, she is asymptomatic. The chest discomfort has resolved completely. The blood pressure and heart rate seems to be under good control. The patient continues to be on dual antiplatelet therapy as well as beta faith. I'm still holding the statin. I'm repeating the CK tomorrow and was a CK is back to normal we will resume her back on statin. Objective - Vital Signs Vital signs: Vital Signs Temp 97.8 F 01/24/17 04:00 Pulse 79 01/24/17 05:00 Resp 17 01/24/17 08:00 BP 104/76 01/24/17 05:00 Pulse Ox 97 01/24/17 05:00 Intake & Output 01/23/17 01/24/17 01/24/17 18:59 06:59 18:59 Intake Total 2340 1200 200 Output Total 270 Balance 2070 1200 200 Weight 75.4 kg Intake: IV 1700 1200 200 Lactated Ringers 1,000 ml 1200 1200 200 @ 100 mls/hr IV .Q10H OTILIO Rx#:[id number] Sodium Chloride 0.9% 500 500 ml @ 999 mls/hr IV .Q31M ONE Rx#:[id number] Oral 640 Output: Urine 270 Other: Voiding Method Indwelling Catheter Indwelling Catheter # Voids 1 # Bowel Movements 1 - Constitutional General appearance: Present: no acute distress - Respiratory Respiratory: bilateral: CTA - Cardiovascular Rhythm: regular Heart sounds: normal: S1, S2 - Labs CBC & Chem 7: 01/24/17 06:18 01/24/17 06:18 Labs: Abnormal Lab Results - Last 24 Hours (Table) 01/23/17 01/24/17 01/24/17 Range/Units 11:30 06:18 06:18 WBC 10.7 H (3.8-10.6) k/uL RBC 3.11 L (3.80-5.40) m/uL Hgb 11.1 L (11.4-16.0) gm/dL Hct 33.5 L (34.0-46.0) % MCV 107.8 H (80.0-100.0) fL MCH 35.7 H (25.0-35.0) pg Creatinine 0.48 L (0.52-1.04) mg/dL Glucose 100 H (74-99) mg/dL Calcium 8.0 L (8.4-10.2) mg/dL Total Bilirubin 1.4 H (0.2-1.3) mg/dL AST 78 H (14-36) U/L ALT 69 H (9-52) U/L Alkaline Phosphatase 223 H (38-126) U/L Ammonia 58 H (<30) umol/L Total Protein 5.3 L (6.3-8.2) g/dL Albumin 2.4 L (3.5-5.0) g/dL Assessment and Plan Plan: Assessment Acute coronary syndrome Occluded very distal LAD Critical limb ischemia Plan Dual antiplatelet therapy Anti-ischemic medication Follow-up with the patient
[2017-01-24 09:40] LABS: Creatine Kinase 195 U/L (30-135)
--- NOTE | 2017-01-24 09:49 | P.CN ---
Psychiatric Consult - . Consult date: 01/24/17 Consult:: DATE OF SERVICE: 01/24/2017 IDENTIFYING DATA: This patient is a 41-year-old female who was admitted to ICU after she was found unresponsive due to a drug overdose, took longer acting morphine. I HISTORY OF PRESENT ILLNESS: The patient the patient was seen in ICU, with mother and present. Patient again reports that she did not make a suicide attempt, that her goal in taking the pain medicine was to relieve her migraine headache. A discrepancy in the history, with the supposedly reporting she was suicidal, was clarified today with him and patient's mother. Both and mother report patient did not make a suicide attempt, was not despondent at the time, but was having a migraine headache that was not relieved with [id number]. states that she was unaware of the difference of the pain medicine which ended up causing her to be obtunded. Patient denies being suicidal today, says she has many reasons to live, is looking forward to getting out of the hospital. She denies being depressed, denies anxiety, denies lydia or hypomania. MENTAL STATUS EXAM: Patient alert and oriented 3, good eye contact, fair groomed in hospital attire. Speech normal volume, rate and production. Coherent, logical and goal directed thought process. No AMAURY, no FOI. No TB/TW/ TI Denied auditory and visual hallucinations. Denied paranoid ideation, delusions or IOR. Memory grossly intact Cognition average Mood neutral to irritable, affect full range decreased intensity, congruent with mood. Denies suicidal ideation, denies homicidal ideation. Insight partial; Judgment grossly intact IMPRESSIONS: 41 year old female with past history of opioid/stimulant abuse, but has not used in several years. Consistent with the initial impression, she gives a convincing account of her taking of pain medication, and today both and mother are present to cooborate her history. She has no affective symptoms today, (depression, anxiety, lydia, hypomania) slight irritation with keno writer / runner over the misunderstanding of 's statement to someone about her intent. No psychosis, no delusions, no ideas of reference. No thoughts of self harm. No plan or intent to kill self. She is future oriented. Family members voice they are not worried about her safety. PLAN: She is ready to be moved to a medical bed, no sitter is indicated. At present no psychiatric recommendations are indicated, but will assess daily. Informed RN Dylan no sitter is indicated.
--- NOTE | 2017-01-24 09:59 | PN ---
This is a 41-year-old female with a history of a recent cardiac catheterization, which showed a small lesion in the distal LAD. The patient will be treated medically for that. In addition when she initially came in, there was a question of possible overdose on a narcotic that apparently belonged to her or significant other. She had mental status changes initially and was given Narcan and transferred to the ICU. She was initially evaluated over at [facility] ER and [facility] ICU. Subsequent to all of that, she developed right lower extremity pain and pulseless right lower extremity and Vascular Surgery was consulted and she ended up having a femoral artery occlusion and underwent a repair of distal external iliac and common femoral artery dissection with a fasciotomy of the right leg. In the process of evaluating her, we found out she has pretty significant chronic liver failure and chronic liver disease. She does have hepatitis C. She has had a number of different procedures in the past, which has been noted in my previous notes. She also has a history of IV heroin use/abuse and methamphetamine use, probably explaining the hepatitis C positivity. She has a history of chronic liver failure, peritonitis, pancreatitis, ascites and esophageal varices. She was also found to be hyperammonemic and started on lactulose. Current vital signs include temperature 97.8, heart rate 79, respiratory rate 17, blood pressure 104/76, mean 85, saturation 97%. Appears in no acute distress. HEENT examination is grossly unremarkable. Mucous membranes are moist. No oral lesions. NECK: Supple. Full range of motion. No adenopathy or thyromegaly. Cardiovascular examination reveals regular rhythm and rate. Heart sounds are distant. S1, S2 normal. No S3, S4 or murmur. Lungs reveal a few scattered rhonchi. No wheezes or crackles. Breath sounds are equal. ABDOMEN: Soft. Bowel sounds are heard. Mild distention. No fluid wave. Extremities are intact. The right lower extremity is wrapped. There is pulse at the dorsalis pedis area. Skin is without rash. Neurological examination is nonfocal. Labs are reviewed. White count 10.7, hemoglobin 11.1, hematocrit 33.5, platelet count 156,000. Sodium, potassium, chloride, CO2 all normal. BUN and creatinine were 8 and 0.48. Total bili was 1.4, AST 78, ALT 69, alkaline phosphatase 223. Her alpha-fetoprotein was less than 1.3. Urine hCG was negative. The rest of her labs are reviewed. Microbiology is currently negative. No recent x-rays to review. She did have a chest x-ray yesterday which showed a mediastinal mass, that will eventually have to be evaluated. Medications are reviewed. ASSESSMENT: 1. Femoral artery occlusion, status post repair of distal external iliac and common femoral artery dissection with right lower extremity fasciotomy. 2. Morphine overdose, with mental status changes, improved with a Narcan drip. 3. Status post cardiac catheterization with a small distal left anterior descending artery lesion, to be managed medically. 4. Previous history of drug abuse with heroin and methamphetamine. 5. History of hepatitis C. 6. History of esophageal varices. 7. History of chronic cirrhosis and chronic liver disease. 8. Portal hypertension. 9. Previous history of right deep venous thrombosis. 10. Previous splenectomy. 11. History of previous CMV infection. 12. History of pancreatitis. 13. History of ascites. PLAN: The patient is currently on IV of LR at 100 mL an hour. She is getting O2 at 3 L. She can be transferred to the general medical floor. Her overall situation is much more stable. Vascular Surgery will continue to see. I did ask GI to see her for their input. Dr. Ely saw her yesterday for vascular surgery. Dr. Dejesus was the one who did the surgery. She has also been seen by Cardiology. Her medications are reviewed. She is on appropriate medications. No additional recommendations are made. She is on ceftriaxone for prophylaxis. I will DC that and put her on a fluoroquinolone. No additional recommendations are made. Prognosis is guarded.
[2017-01-24] MEDS: CIPROFLOXACIN HCL 250 MG TAB PO SCH ×2 (10:20→20:14)
--- NOTE | 2017-01-24 11:22 | P.PN ---
Subjective 41-year-old female who apparently moved from [place] recently does not have any primary care physician and down who was admitted to [facility] through [facility] apartment because of unresponsiveness found to have drug overdose by taking a longer acting morphine between 1620 mg at bedtime. According to the with the story told to the emergency department at this was suicidal attempt. Patient was admitted initially to the ICU at [facility] and troponin was mildly elevated shortly after admission developed to have increased chest pain worsening abnormal finding on EKG along with elevated troponin. Dr. Cid decided to transfer patient to [facility] to the biological lab technician for emergency heart catheter for CRAIG PR. Patient was transferred and end up having an emergency heart catheter finding consistent with distal LAD thrombus. The artery was very small could not do an angioplasty and stent placement. Patient was admitted to the ICU afterward. 01/23: Patient has been seen by Dr Dejesus for acute right leg ischemia with right common femoral occlusion status post repair of right distal external iliac and common femoral dissection. She is followed by Dr. Fritz from pulmonary medicine. Ultrasound of the abdomen is limited with no ascites. Acute hepatitis panel was hepatitis C reactive Echocardiogram reveals mild mitral regurgitation, mild concentric left ventricular hypertrophy. Patient has been seen by Dr. Hendricks from psychiatry with no eminent threat to herself. Repeat chest x-ray shows a mediastinal mass, recommend chest CT. Correlate for possible pulmonary venous hypertension and interstitial edema 01/24: Patient has been reevaluated by psychiatry and sitter has been discontinued. [facility] Ultrasound of the abdomen suggest nodular liver. Correlate for underlining cirrhosis. Note only portions of the liver are visualized. No biliary ductal dilatation status post cholecystectomy. Mild abdominal ascites. Patient is followed by Dr. Yuko Shepard with plan for follow-up in the office in one to 2 weeks. AST is down to 78, ALT 69, alkaline phosphatase 223. Ammonia level is down to 17 and she is on lactulose. Objective - Vital Signs Vital signs: Vital Signs Temp 98.0 F 01/24/17 08:00 Pulse 99 01/24/17 09:00 Resp 22 01/24/17 09:00 BP 108/69 01/24/17 09:00 Pulse Ox 96 01/24/17 09:00 Intake & Output 01/23/17 01/24/17 01/24/17 18:59 06:59 18:59 Intake Total 2340 1200 200 Output Total 270 Balance 2070 1200 200 Weight 75.4 kg Intake: IV 1700 1200 200 Lactated Ringers 1,000 ml 1200 1200 200 @ 100 mls/hr IV .Q10H OTILIO Rx#:[id number] Sodium Chloride 0.9% 500 500 ml @ 999 mls/hr IV .Q31M ONE Rx#:[id number] Oral 640 Output: Urine 270 Other: Voiding Method Indwelling Catheter Indwelling Catheter # Voids 1 # Bowel Movements 1 - Exam General appearance: no average body habitus, cooperative, no disheveled, no mild distress, no morbidly obese, no acute distress, no obese, no severe distress, no thin - EENT Eyes: abnormal pupil, no anicteric sclerae, no disc margins sharp, no edentulous , no EOMI, no PERRLA, no fundus normal, no photophobia, no dentition normal, no poor dentition, no ptosis, no scleral icterus, normal appearance ENT: no hard of hearing, no hearing grossly normal, no NA/AT, normal oropharynx , no other, no pharyngeal erythema, no thrush, no tonsillar exudates, no tonsillar swelling Ears: bilateral: normal - Neck Neck: no lymphadenopathy, normal ROM, no other, no rigidity, no stridor, no thyromegaly Carotids: bilateral: upstroke normal Thyroid: bilateral: normal size - Respiratory Respiratory: bilateral: CTA, diminished - Cardiovascular Rhythm: regular Heart sounds: normal: S1, S2 Abnormal Heart Sounds: systolic murmur - Gastrointestinal General gastrointestinal: no absent bowel sounds, no decreased bowel sounds, distended, no hepatomegaly, no hyperactive bowel sounds, no normal bowel sounds , no organomegaly, no rigid, no scaphoid, soft, no splenomegaly, no tenderness, no umbilical hernia, no ventral hernia - Integumentary Integumentary: no calor, no cellulitis, no cyanotic, no decreased turgor, no flushed, no jaundiced, no normal, no normal turgor, pale, rash, no ulcer - Neurologic Neurologic: CNII-XII intact - Musculoskeletal Musculoskeletal: gait normal, generalized weakness, strength equal bilaterally, no right sided weakness, no left sided weakness - Psychiatric Psychiatric: A&O x's 3, appropriate affect - Labs CBC & Chem 7: 01/24/17 06:18 01/24/17 06:18 Labs: Abnormal Lab Results - Last 24 Hours (Table) 01/23/17 01/24/17 01/24/17 Range/Units 11:30 06:18 06:18 WBC 10.7 H (3.8-10.6) k/uL RBC 3.11 L (3.80-5.40) m/uL Hgb 11.1 L (11.4-16.0) gm/dL Hct 33.5 L (34.0-46.0) % MCV 107.8 H (80.0-100.0) fL MCH 35.7 H (25.0-35.0) pg Creatinine 0.48 L (0.52-1.04) mg/dL Glucose 100 H (74-99) mg/dL Calcium 8.0 L (8.4-10.2) mg/dL Total Bilirubin 1.4 H (0.2-1.3) mg/dL AST 78 H (14-36) U/L ALT 69 H (9-52) U/L Alkaline Phosphatase 223 H (38-126) U/L Ammonia 58 H (<30) umol/L Creatine Kinase 195 H (30-135) U/L Total Protein 5.3 L (6.3-8.2) g/dL Albumin 2.4 L (3.5-5.0) g/dL Assessment and Plan Plan: 1 ST elevation PR: Patient had an angiogram with finding consistent with distal LAD blockage no angioplasty was done. Patient will be continue on secondary prevention at this point. 2 CAD: With new onset of PR from yesterday, secondary prevention with the current symptom will be started on beta faith, Elliott, statin and possible isosorbide. 3 acute right leg ischemia with right common femoral occlusion status post repair of right distal external iliac and common femoral dissection with Dr. Dr Dejesus. 4 drug overdose: Was mostly long acting morphine was reversed with Narcan patient claimed this was incidental more than suicidal attempt. With the current symptoms patient be seen psychiatry and need to be cleared by psych before leaving the hospital. 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 Hepatitis C reactive on acute hepatitis panel. Ultrasound of above. Patient will follow-up with Dr. Louie Shepard as an outpatient 5 portal hypertension: Patient had this is secondary to advanced liver disease. 6 previous history of GI bleed: Patient will continue on Pepcid and either nadolol for esophageal varices or other beta faith. 7 history of drug addiction: Patient uses heroin in the past and on methamphetamine, patient be seen psych. 8 DVT prophylaxis: Patient will be on heparin subcutaneous. 9 GI prophylaxis: Continue patient on Pepcid daily. CODE STATUS: Full code. Discharge plan: Return home Impression and plan of care have been directed as dictated by the signing physician. Cyndi Garcia nurse practitioner acting as scribe for signing physician.
[2017-01-24 11:23] LABS: Iron 12 ug/dL (37-170)
[2017-01-24 11:32] LABS: % Iron Saturation 6.3 % (20-50); Total Iron Binding Capacity 192 ug/dL (265-497)
--- NOTE | 2017-01-24 13:53 | P.PN ---
Progress Note - Text no adverse events overnight tolerating diet AF VSS EXTR; right groin incision; no erythema, suture and jay jay intact; lower leg edema from knee to foot; palpable dorsalis pedis pulse; FROM right foot with neuro intact impression/plan 1. s/p repair of right femoral artery POD # 2 PT for ambulation keep sonali wrap on right leg on; elevate as much as possible dressing change orders written f/u office on 01/29/2017- Anjelica
[2017-01-24 15:04] LABS: ANA w/Reflex to Titer NEGATIVE (NEGATIVE)
[2017-01-24 22:00] LABS: Creatine Kinase MB 0.4 ng/mL (0.0-2.4); Troponin I 0.032 ng/mL (0.000-0.034)
[2017-01-25] MEDS: LACTATED RINGERS 1,000 ML IV SCH (01:52)
--- NOTE | 2017-01-25 08:02 | P.PN ---
Progress Note - Text no adverse events overnight walked with PT yesterday Tmax = 100.1 other VSS right leg; groin incision is clean with no evidence of hematoma or infection; right leg dressing in place, palpable dorsalis pedis pulse; FROM with no evidence of peroneal nerve palsy s/p repair of right distal external iliac and femoral artery stable from vascular standpoint continue PT dressing changes written OK to d/c home from vascular standpoint when OK with PT office visit with Anjelica on 01/29/2017 at 0900
[2017-01-25] MEDS: HYDROmorphone 1 MG/ML 1 ML SYRINGE IVP PRN ×4 (08:21→20:06)
[2017-01-25] MEDS: METOPROLOL TARTRATE 12.5 MG TAB PO SCH ×2 (08:22→20:06)
[2017-01-25] MEDS: ENOXAPARIN 40 MG/0.4 ML SYRINGE SQ SCH (08:22)
[2017-01-25] MEDS: FAMOTIDINE 20 MG TAB PO SCH (08:22)
[2017-01-25] MEDS: LACTULOSE 20 GM/30 ML CUP PO SCH ×3 (08:23→20:07)
[2017-01-25] MEDS: CIPROFLOXACIN HCL 250 MG TAB PO SCH ×2 (08:23→20:07)
[2017-01-25] MEDS: ASPIRIN 325 MG TAB PO SCH (08:23)
[2017-01-25] MEDS: CLOPIDOGREL 75 MG TAB PO SCH (08:23)
[2017-01-25 09:48] LABS: ALT 70 U/L (9-52); AST 73 U/L (14-36); Alkaline Phosphatase 248 U/L (38-126); Anion Gap 5 mmol/L; Blood Urea Nitrogen 5 mg/dL (7-17); Calcium 8.1 mg/dL (8.4-10.2); Carbon Dioxide 27 mmol/L (22-30); Chloride 105 mmol/L (98-107); Glucose 125 mg/dL (74-99); Non-African American GFR(MDRD) >60 (>60 ml/min/1.73 sqM); Potassium 3.7 mmol/L (3.5-5.1); Sodium 137 mmol/L (137-145); Total Bilirubin 1.5 mg/dL (0.2-1.3); Total Protein 5.5 g/dL (6.3-8.2)
[2017-01-25 09:54] LABS: Basophils % (A) 0 %; CH 34.4; CHCM 32.7; Eosinophils # (A) 0.8 k/uL (0-0.7); Eosinophils % (A) 8 %; HCT 33.3 % (34.0-46.0); HDW 3.02; Luc # (Auto) 0.47; Luc % (Auto) 4; Lymphocytes # (A) 2.2 k/uL (1.0-4.8); Lymphocytes % (A) 20 %; MCH 35.2 pg (25.0-35.0); MCHC 33.1 g/dL (31.0-37.0); MCV 106.2 fL (80.0-100.0); Macrocytosis Moderate; Mean Platelet Volume 9.8; Monocytes % (A) 9 %; Neutrophils # (A) 6.4 k/uL (1.3-7.7); Neutrophils % (A) 59 %; RBC 3.13 m/uL (3.80-5.40); RDW 14.7 % (11.5-15.5); WBC 10.9 k/uL (3.8-10.6); WBC (Perox) 10.45
--- NOTE | 2017-01-25 09:58 | P.PN ---
Subjective Principal diagnosis: hepatic cephalopathy hepatitis C reactive antibody 41-year-old female history of ACS status post heart catheterization with right lower extremity ischemia status post surgery. Feels well. Tolerating liquid diet. Afebrile. Ammonia level improved. Ultrasound abdomen reported cirrhotic changes with liver small amount of ascites. Objective - Vital Signs Vital signs: Vital Signs Temp 100.3 F H 01/25/17 07:00 Pulse 82 01/25/17 07:00 Resp 26 H 01/25/17 07:00 BP 123/73 01/25/17 07:00 Pulse Ox 96 01/25/17 07:00 Intake & Output 01/24/17 01/25/17 01/25/17 18:59 06:59 18:59 Intake Total 300 400 Balance 300 400 Intake: IV 300 Lactated Ringers 1,000 ml 300 @ 100 mls/hr IV .Q10H OTILIO Rx#:[id number] Oral 400 Other: Voiding Method Toilet Toilet Bedside Commode Bedside Commode # Voids 2 3 # Bowel Movements 8 1 - Exam General appearance: The patient is sleepy but easily awakened with appropriate conversation, oriented, in no acute distress. HET: Head is normocephalic and atraumatic. Pupils are equal and reactive. Oropharynx is clear without lesions. Neck: Supple without lymphadenopathy. Trachea midline. Heart: S1 S2. Regular rate and rhythm. Lungs: No crackles or wheezes are heard. Abdomen: Soft, nontender, bloated with no appreciable ascites with bowel sounds. No peritoneal signs. No palpable organomegaly or masses. Extremities: Right lower extremity dressing intact with palpable DP /PT . Neurological: No focal deficits. Strength and sensation are grossly intact. - Labs CBC & Chem 7: 01/24/17 06:18 01/24/17 06:18 Labs: Abnormal Lab Results - Last 24 Hours (Table) 01/24/17 01/24/17 Range/Units 06:18 21:15 Creatinine 0.48 L (0.52-1.04) mg/dL Glucose 100 H (74-99) mg/dL Calcium 8.0 L (8.4-10.2) mg/dL Iron 12 L (37-170) ug/dL TIBC 192 L (265-497) ug/dL % Saturation 6.3 L (20-50) % Total Bilirubin 1.4 H (0.2-1.3) mg/dL AST 78 H (14-36) U/L ALT 69 H (9-52) U/L Alkaline Phosphatase 223 H (38-126) U/L Creatine Kinase 195 H (30-135) U/L Total Creatine Kinase 152 H (30-135) U/L Total Protein 5.3 L (6.3-8.2) g/dL Albumin 2.4 L (3.5-5.0) g/dL Assessment and Plan (1) Cirrhosis Narrative/Plan: Cryptogenic etiology is unclear. 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 Splenectomy as a young child. Additional past medical history was obtained from patient and her mother this morning regarding her history of cirrhosis. As a young child she underwent extensive investigation of her cirrhosis and at the time they thought cirrhosis was from a CMV infection however about 10 years ago she was told by an out of state GI specialist cirrhosis most likely was not related to CMV infection. Status: Acute (2) Elevated liver enzymes Status: Acute (3) Chronic liver disease Status: Acute (4) Heroin abuse Status: Acute (5) Drug overdose Status: Acute (6) Occlusion of common femoral artery Status: Acute (7) Hepatic encephalopathy Status: Acute (8) Hepatitis C antibody positive in blood Status: Acute (9) Acute coronary syndrome Status: Acute Plan: 1. Serologic liver chemistries have been reviewed for workup of cirrhosis and at this time there are no obvious abnormalities to account for the etiology of her cirrhosis. 2. Continue supportive measures discharge per medicine. We'll follow up as an outpatient in 1-2 weeks after discharge and discuss hepatitis C serology findings and multiple treatment. Possible referral to tertiary care center for further management of her cirrhosis. 3. Patient's mother stated she will try to obtain daughter's medical records from her previous pinking machine operator and bring to office visit for review. 4. Continue with present medical therapy pending discharge. Would advise lactulose 20 g daily on discharge and may titrate up to 3-4 times daily to achieve 3-4 bowel movements daily. Assessment and plan a care discussed with Dr. Shepard.
[2017-01-25] MEDS: SPIRONOLACTONE 25 MG TAB PO SCH (10:48)
[2017-01-25] MEDS: FUROSEMIDE 20 MG TAB PO SCH (10:48)
--- NOTE | 2017-01-25 13:44 | P.PN ---
Subjective 41-year-old female who apparently moved from [place] recently does not have any primary care physician and down who was admitted to [facility] because of unresponsiveness found to have drug overdose by taking a longer acting morphine between 1620 mg at bedtime. According to the with the story told to the emergency department at this was suicidal attempt. Patient was admitted initially to the ICU at [facility] and troponin was mildly elevated shortly after admission developed to have increased chest pain worsening abnormal finding on EKG along with elevated troponin. Dr. Cid decided to transfer patient to [facility] to the engineer geophysical laboratory for emergency heart catheter for CRAIG ND. Patient was transferred and end up having an emergency heart catheter finding consistent with distal LAD thrombus. The artery was very small could not do an angioplasty and stent placement. Patient was admitted to the ICU afterward. 01/23: She was seen by Dr. Dejesus for acute right leg ischemia with right common for femoral occulsion repair of the right distal external iliac and common femoral dissection. She was seen by Dr. Hendricks psychiatry she is not an imminent threat to self. Case was discussed with psychiatry today there is concern for suicidal ideation. The chest x-ray shows mediastinal Mass. recommend chest CT correlate for possible pulmonary venous hypertension and interstitial edema. Patient is followed by Dr. Michelle for intensive care management. Her sound of abdomen showed no ascites. Echocardiogram showed mild mitral regurgitation, mild concentric left ventricular hypertrophy and an ejection fraction of 50-55%. Hepatitis C is reactive discussed test results with patient today. 01/24: Patient has been reevaluated by psychiatry and sitter has been discontinued. Patient has been downgraded by Dr. Fritz to [facility] floor. Ultrasound of the abdomen suggest nodular liver. Correlate for underlining cirrhosis. Note only portions of the liver are visualized. No biliary ductal dilatation status post cholecystectomy. Mild abdominal ascites. Patient is followed by Dr. Yuko Shepard with plan for follow-up in the office in one to 2 weeks. AST is down to 78, ALT 69, alkaline phosphatase 223. Ammonia level is down to 17 and she is on lactulose. 01/25: The patient was reevaluated by vascular today who cleared patient for discharge with physical therapy. She continues to be followed by Dr. Shepard who recommends follow-up in the office and to continue lactulose. Patient was noted to have some fluid retention today. IV fluids discontinued furosemide and Aldactone ordered. Will anticipate discharge tomorrow. Objective - Vital Signs Vital signs: Vital Signs Temp 100.3 F H 01/25/17 07:00 Pulse 82 01/25/17 07:00 Resp 26 H 01/25/17 07:00 BP 123/73 01/25/17 07:00 Pulse Ox 96 01/25/17 07:00 Intake & Output 01/24/17 01/25/17 01/25/17 18:59 06:59 18:59 Intake Total 300 400 Balance 300 400 Intake: IV 300 Lactated Ringers 1,000 ml 300 @ 100 mls/hr IV .Q10H OTILIO Rx#:[id number] Oral 400 Other: Voiding Method Toilet Toilet Bedside Commode Bedside Commode # Voids 2 3 # Bowel Movements 8 1 - Exam General appearance: no average body habitus, cooperative, no disheveled, no mild distress, no morbidly obese, no acute distress, no obese, no severe distress, no thin - EENT Eyes: abnormal pupil, no anicteric sclerae, no disc margins sharp, no edentulous , no EOMI, no PERRLA, no fundus normal, no photophobia, no dentition normal, no poor dentition, no ptosis, no scleral icterus, normal appearance ENT: no hard of hearing, no hearing grossly normal, no NA/AT, normal oropharynx , no other, no pharyngeal erythema, no thrush, no tonsillar exudates, no tonsillar swelling Ears: bilateral: normal - Neck Neck: no lymphadenopathy, normal ROM, no other, no rigidity, no stridor, no thyromegaly Carotids: bilateral: upstroke normal Thyroid: bilateral: normal size - Respiratory Respiratory: bilateral: CTA, diminished - Cardiovascular Rhythm: regular Heart sounds: normal: S1, S2 Abnormal Heart Sounds: systolic murmur - Gastrointestinal General gastrointestinal: no absent bowel sounds, no decreased bowel sounds, distended, no hepatomegaly, no hyperactive bowel sounds, no normal bowel sounds , no organomegaly, no rigid, no scaphoid, soft, no splenomegaly, no tenderness, no umbilical hernia, no ventral hernia - Integumentary Integumentary: no calor, no cellulitis, no cyanotic, no decreased turgor, no flushed, no jaundiced, no normal, no normal turgor, pale, rash, no ulcer - Neurologic Neurologic: CNII-XII intact - Musculoskeletal Musculoskeletal: gait normal, generalized weakness, strength equal bilaterally, no right sided weakness, no left sided weakness - Psychiatric Psychiatric: A&O x's 3, appropriate affect - Labs CBC & Chem 7: 01/25/17 08:53 01/25/17 08:53 Labs: Abnormal Lab Results - Last 24 Hours (Table) 01/24/17 01/25/17 01/25/17 Range/Units 21:15 08:53 08:53 WBC 10.9 H (3.8-10.6) k/uL RBC 3.13 L (3.80-5.40) m/uL Hgb 11.0 L (11.4-16.0) gm/dL Hct 33.3 L (34.0-46.0) % MCV 106.2 H (80.0-100.0) fL MCH 35.2 H (25.0-35.0) pg Eosinophils # 0.8 H (0-0.7) k/uL BUN 5 L (7-17) mg/dL Creatinine 0.46 L (0.52-1.04) mg/dL Glucose 125 H (74-99) mg/dL Calcium 8.1 L (8.4-10.2) mg/dL Total Bilirubin 1.5 H (0.2-1.3) mg/dL AST 73 H (14-36) U/L ALT 70 H (9-52) U/L Alkaline Phosphatase 248 H (38-126) U/L Total Creatine Kinase 152 H (30-135) U/L Total Protein 5.5 L (6.3-8.2) g/dL Albumin 2.5 L (3.5-5.0) g/dL Assessment and Plan Plan: 1 ST elevation ND: Patient had an angiogram with finding consistent with distal LAD blockage no angioplasty was done. Patient will be continue on secondary prevention at this point. 2 CAD: With new onset of ND from yesterday, secondary prevention with the current symptom will be started on beta faith, Elliott, statin and possible isosorbide. 3 acute right leg ischemia with right common femoral occlusion status post repair of right distal external iliac and common femoral dissection with Dr. Dr Dejesus. 4 drug overdose: Was mostly long acting morphine was reversed with Narcan patient claimed this was incidental more than suicidal attempt. She is cleared by psychiatry. Bedside sitter has been discontinued. 4 advanced liver disease: Either primary biliary cirrhosis or congenital CMV, liver function tests will be repeated daily patient on lactulose further management and possible follow-up with hepatology need to be done. Hepatitis C reactive on acute hepatitis panel. Patient will follow-up with Dr. Louie Shepard as an outpatient with possible referral to tertiary care center for further management of her cirrhosis. 5 portal hypertension: Patient had this is secondary to advanced liver disease. 6 previous history of GI bleed: Patient will continue on Pepcid and either nadolol for esophageal varices or other beta faith. 7 history of drug addiction: Patient uses heroin in the past and on methamphetamine, patient has been cleared by psychiatry. 8 DVT prophylaxis: Patient will be on heparin subcutaneous. 9 GI prophylaxis: Continue patient on Pepcid daily. CODE STATUS: Full code. Discharge plan: Return home The above impression and plan of care have been discussed and directed by signing physician. Zenboia Caal nurse practitioner acting as scribe for signing physician.
--- NOTE | 2017-01-25 15:40 | P.PN ---
Progress Note - Text INTERVERAL HISTORY: Patient has been moved to a medical floor, vascular saw her today and she looks like she is ready to be discharged for some physical therapy medicine is now adjusts addressing some fluid retention. Patient reports she is doing fine was pleasant and cooperative mother was present, they were joking about her getting ready to enter a race. Patient reports she is feeling good no problems with depression and anxiety. No psychosis. She did ask me about treatment for a family member, and we discussed that. MENTAL STATUS EXAM: Alert and oriented 3, pleasant and cooperative. Good eye contact. Was getting ready to have a shower. Speech normal volume rate and production. Coherent logical and goal directed thought process, no AMAURY no FOI no delusions no ideas of reference. Mood neutral to euthymic, affect full range normal intensity, congruent with mood No suicidal ideation. No homicidal ideation A:Patient with an inadvertent over dose, she and family are adamant it was not intentional, no history of suicide attempts. Opioid use, disorder, in remission. 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 She is safe for discharge when medically stable.
[2017-01-26] MEDS: HYDROmorphone 1 MG/ML 1 ML SYRINGE IVP PRN ×3 (00:16→10:45)
[2017-01-26 07:57] VITALS: BP 120/76; PULSE 85; RESP 16; TEMP 99.1
[2017-01-26] MEDS: CLOPIDOGREL 75 MG TAB PO SCH (08:02)
[2017-01-26] MEDS: SPIRONOLACTONE 25 MG TAB PO SCH (08:02)
[2017-01-26] MEDS: FAMOTIDINE 20 MG TAB PO SCH (08:02)
[2017-01-26] MEDS: METOPROLOL TARTRATE 12.5 MG TAB PO SCH (08:02)
[2017-01-26] MEDS: ASPIRIN 325 MG TAB PO SCH (08:02)
[2017-01-26] MEDS: FUROSEMIDE 20 MG TAB PO SCH (08:02)
[2017-01-26] MEDS: CIPROFLOXACIN HCL 250 MG TAB PO SCH (08:02)
[2017-01-26] MEDS: ENOXAPARIN 40 MG/0.4 ML SYRINGE SQ SCH (08:02)
[2017-01-26] MEDS: LACTULOSE 20 GM/30 ML CUP PO SCH (08:03)
[2017-01-26 10:27] LABS: CH 34.5; CHCM 32.8; HCT 34.2 % (34.0-46.0); HDW 3.16; HGB 11.4 gm/dL (11.4-16.0); Hypochromasia Slight; MCH 35.3 pg (25.0-35.0); MCHC 33.3 g/dL (31.0-37.0); MCV 106.2 fL (80.0-100.0); Macrocytosis Moderate; Mean Platelet Volume 9.2; RBC 3.22 m/uL (3.80-5.40); RDW 14.5 % (11.5-15.5); WBC (Perox) 8.91
[2017-01-26 10:29] LABS: ALT 72 U/L (9-52); AST 96 U/L (14-36); Alkaline Phosphatase 238 U/L (38-126); Anion Gap 7 mmol/L; Blood Urea Nitrogen 5 mg/dL (7-17); Calcium 8.1 mg/dL (8.4-10.2); Carbon Dioxide 26 mmol/L (22-30); Chloride 103 mmol/L (98-107); Glucose 108 mg/dL (74-99); Non-African American GFR(MDRD) >60 (>60 ml/min/1.73 sqM); Potassium 3.5 mmol/L (3.5-5.1); Sodium 136 mmol/L (137-145); Total Bilirubin 1.8 mg/dL (0.2-1.3); Total Protein 5.8 g/dL (6.3-8.2)
[2017-01-26 11:08] LABS: Manual Review Performed
[2017-01-26 11:15] LABS: Add Differential Manual Differential
[2017-01-26 11:18] LABS: Nucleated Red Blood Cells 5 /100 WBC (0-0); Total Cells Counted 200
[2017-01-26 11:19] LABS: WBC 9.5 k/uL (3.8-10.6)
[2017-01-26 11:20] LABS: Howell-Jolly Bodies Present; Large Platelets Present
[2017-01-26 11:21] LABS: Polychromasia Present
[2017-01-26 13:32] LABS: HCV Qualitative Result DETECTED (Not detected)
--- NOTE | 2017-02-23 14:11 | P.DS ---
Providers Date of admission: 01/22/17 00:08 Expected date of discharge: 01/26/17 Attending physician: Gus St Consults: 01/22/17 08:46 Consult Physician Stat Consulting Provider: Dixon Fritz Consult Reason/Comments: NSTEMI Do you want consulting provider notified?: Already Contacted 01/22/17 10:01 Consult Physician Routine Consulting Provider: Donovan Antunez Consult Reason/Comments: NSTEMI Do you want consulting provider notified?: Already Contacted 01/22/17 10:14 Consult Physician Urgent Consulting Provider: Elise Dejesus Consult Reason/Comments: pulseless right leg Do you want consulting provider notified?: Yes 01/22/17 10:17 Consult Physician Routine Consulting Provider: Eva Hendricks Consult Reason/Comments: claims suicidal Do you want consulting provider notified?: Already Contacted Primary care physician: Stated None Hospital Course: 41-year-old female who apparently moved from [place] recently does not have any primary care physician and down who was admitted to [facility] through [facility] because of unresponsiveness found to have drug overdose by taking a longer acting morphine between 1620 mg at bedtime. According to the with the story told to the emergency department at this was suicidal attempt. Patient was admitted initially to the ICU at [facility] and troponin was mildly elevated shortly after admission developed to have increased chest pain worsening abnormal finding on EKG along with elevated troponin. Dr. Cid decided to transfer patient to [facility] to the labor employment associate for emergency heart catheter for CRAIG WI. Patient was transferred and end up having an emergency heart catheter finding consistent with distal LAD thrombus. The artery was very small could not do an angioplasty and stent placement. Patient was admitted to the ICU afterward. 01/23: She was seen by Dr. Dejesus for acute right leg ischemia with right common for femoral occulsion repair of the right distal external iliac and common femoral dissection. She was seen by Dr. Hendricks psychiatry she is not an imminent threat to self. Case was discussed with psychiatry today there is concern for suicidal ideation. The chest x-ray shows mediastinal Mass. recommend chest CT correlate for possible pulmonary venous hypertension and interstitial edema. Patient is followed by Dr. Michelle for intensive care management. Her sound of abdomen showed no ascites. Echocardiogram showed mild mitral regurgitation, mild concentric left ventricular hypertrophy and an ejection fraction of 50-55%. Hepatitis C is reactive discussed test results with patient today. 01/24: Patient has been reevaluated by psychiatry and sitter has been discontinued. Patient has been downgraded by Dr. Fritz to [facility]. Ultrasound of the abdomen suggest nodular liver. Correlate for underlining cirrhosis. Note only portions of the liver are visualized. No biliary ductal dilatation status post cholecystectomy. Mild abdominal ascites. Patient is followed by Dr. Yuko Shepard with plan for follow-up in the office in one to 2 weeks. AST is down to 78, ALT 69, alkaline phosphatase 223. Ammonia level is down to 17 and she is on lactulose. 01/25: The patient was reevaluated by vascular today who cleared patient for discharge with physical therapy. She continues to be followed by Dr. Shepard who recommends follow-up in the office and to continue lactulose. Patient was noted to have some fluid retention today. IV fluids discontinued furosemide and Aldactone ordered. Will anticipate discharge tomorrow. 01/26: Patient was re-evaluated by psychiatrist and deemed safe to return home. Patient was cleared by Dr. Dr Dejesus for discharge with plan for follow-up in the office. Statin remains on hold due to elevated liver function tests. GI recommends follow-up with a tertiary center for cirrhosis. Cardiology recommends dual antiplatelet therapy. At the time of discharge, total bilirubin 1.8, AST 96, ALT 72 and alkaline phosphatase 238. Patient will be discharged home today in stable condition. Discharge diagnoses: [address] elevation WI: Patient had an angiogram with finding consistent with distal LAD blockage no angioplasty was done. 2 CAD: With new onset of WI 3 acute right leg ischemia with right common femoral occlusion status post repair of right distal external iliac and common femoral dissection with Dr. Dr Dejesus. 4 drug overdose: Was mostly long acting morphine was reversed with Narcan patient claimed this was incidental more than suicidal attempt. 4 advanced liver disease: Either primary biliary cirrhosis or congenital CMV, Hepatitis C reactive , follow up tertiary care center for further management of her cirrhosis. 5 portal hypertension: Patient had this is secondary to advanced liver disease. 6 previous history of GI bleed 7 history of drug addiction: Patient uses heroin in the past and on methamphetamine, Discharge plan: Return home The above impression and plan of care have been discussed and directed by signing physician. Zenobia Caal nurse practitioner acting as scribe for signing physician. Patient Condition at Discharge: Good Plan - Discharge Summary New Discharge Prescriptions: New Aspirin EC [Ecotrin Low Dose] 81 mg PO DAILY #30 tablet. Ciprofloxacin HCl [Cipro] 250 mg PO BID #14 tab Clopidogrel [Plavix] 75 mg PO DAILY #30 tab Famotidine [Pepcid] 20 mg PO DAILY #30 tab Furosemide [Lasix] 20 mg PO BID@0900,1600 #60 tab Lactulose [Cephulac] 20 gm PO DAILY #90 ml Metoprolol Tartrate [Lopressor] 12.5 mg PO BID #60 tab Spironolactone [Aldactone] 25 mg PO DAILY #30 tab oxyCODONE-APAP 10-325MG [Percocet 10-325 mg] 1 each PO Q6HR PRN #20 tab PRN Reason: SEVERE Pain Continue diphenhydrAMINE HCL [Benadryl] 25 mg PO HS PRN PRN Reason: Allergy Symptoms Discontinued [id number] [Excedrin] 1 tab PO BID PRN PRN Reason: Headache Discharge Medication List diphenhydrAMINE HCL [Benadryl] 25 mg PO HS PRN 01/22/17 [History] Aspirin EC [Ecotrin Low Dose] 81 mg PO DAILY #30 tablet. 01/26/17 [Rx] Ciprofloxacin HCl [Cipro] 250 mg PO BID #14 tab 01/26/17 [Rx] Clopidogrel [Plavix] 75 mg PO DAILY #30 tab 01/26/17 [Rx] Famotidine [Pepcid] 20 mg PO DAILY #30 tab 01/26/17 [Rx] Furosemide [Lasix] 20 mg PO BID@0900,1600 #60 tab 01/26/17 [Rx] Lactulose [Cephulac] 20 gm PO DAILY #90 ml 01/26/17 [Rx] Metoprolol Tartrate [Lopressor] 12.5 mg PO BID #60 tab 01/26/17 [Rx] Spironolactone [Aldactone] 25 mg PO DAILY #30 tab 01/26/17 [Rx] oxyCODONE-APAP 10-325MG [Percocet 10-325 mg] 1 each PO Q6HR PRN #20 tab [Rx] Follow up Appointment(s)/Referral(s): Donovan Antunez MD [STAFF PHYSICIAN] - 1 Week Elise Dejesus MD [STAFF PHYSICIAN] - 1 Week (patient is scheduled on 2016 at 0900) Keyonna Shepard MD [STAFF PHYSICIAN] - 2 Weeks Activity/Diet/Wound Care/Special Instructions: clean around groin incision daily with alcohol, cover with telfa and secure with transparent dressing clean around leg incisions every other day with alcohol, cover with telfa; wrap leg from foot to below knee with sonali OK to shower, NO TUB BATH KEEP RIGHT LEG ELEVATED WHEN NOT WALKING OR IN BED Discharge Disposition: HOME SELF-CARE
== END 2017-01-26 13:05 | disposition home or self-care (01) | DRG 252 ==
LOC: 6ICU 01-22 00:08 → 4MS4W 01-24 15:24
PROVIDERS: ADMIT Internal Medicine Geriatric Medicine; ATTEND Internal Medicine Geriatric Medicine
PROC: B2111ZZ Fluoroscopy of Multiple Coronary Arteries using Low Osmolar Contrast (ICD-10-PCS; 2017-01-22)
PROC: B2151ZZ Fluoroscopy of Left Heart using Low Osmolar Contrast (ICD-10-PCS; 2017-01-22)
PROC: 04QK0ZZ Repair Right Femoral Artery, Open Approach (ICD-10-PCS; 2017-01-22)
PROC: 04QH0ZZ Repair Right External Iliac Artery, Open Approach (ICD-10-PCS; 2017-01-22)
PROC: 04CK0ZZ Extirpation of Matter from Right Femoral Artery, Open Approach (ICD-10-PCS; 2017-01-22)
PROC: 4A023N7 Measurement of Cardiac Sampling and Pressure, Left Heart, Percutaneous Approach (ICD-10-PCS; principal; 2017-01-22 00:01)
DX: I21.3 ST elevation (STEMI) myocardial infarction of unspecified site (principal); I77.77 Dissection of artery of lower extremity; I77.72 Dissection of iliac artery; I74.3 Embolism and thrombosis of arteries of the lower extremities; I85.00 Esophageal varices without bleeding; K76.6 Portal hypertension; I10 Essential (primary) hypertension; F11.10 Opioid abuse, uncomplicated; B19.20 Unspecified viral hepatitis C without hepatic coma; F15.10 Other stimulant abuse, uncomplicated; G43.909 Migraine, unspecified, not intractable, without status migrainosus; I25.10 Atherosclerotic heart disease of native coronary artery without angina pectoris; I34.0 Nonrheumatic mitral (valve) insufficiency; I99.8 Other disorder of circulatory system; T40.2X1A Poisoning by other opioids, accidental (unintentional), initial encounter; R22.2 Localized swelling, mass and lump, trunk; H91.90 Unspecified hearing loss, unspecified ear; K72.10 Chronic hepatic failure without coma; K74.60 Unspecified cirrhosis of liver; Z79.899 Other long term (current) drug therapy; Z88.8 Allergy status to other drugs, medicaments and biological substances; Z91.040 Latex allergy status
CPT/HCPCS: 71010; 76705; 80048; 80053; 80074; 80076; 81025; 82103; 82105; 82140; 82390; 82550; 82553; 82728; 83516; 83540; 83550; 83735; 83880; 84165; 84484; 85025; 85027; 85610; 85730; 86038; 87522; 87902; 93306; 93458; 94760